=== PATIENT | female | born 1960 | race Caucasian/White ===

== ENCOUNTER 2016-05-26 | Inpatient (IN) | payer SELFPAY ==
[2016-05-26] VITALS (10 sets, daily range): BP systolic 123–150; BP diastolic 58–79; PULSE 70–120; RESP 16–22; TEMP 97.2–100; O2SAT 95–99
[~2016-05-26] VITALS: Ht 157.5 cm; Wt 79.0 kg
[~2016-05-26] MED LIST: MACR100C2 PO
[2016-05-26] MEDS ORDERED: SODIUM CHLOR 0.9% 1000 ML INJ 1,000 ML IV ONE ×2 (00:32)
[2016-05-26] MEDS ORDERED: PIPERACIL-TAZO 4.5 GM PREMIX 100 ML IV STA (00:32)
[2016-05-26] MEDS ORDERED: VANCOMYCIN INJ 1,400 MG in SODIUM CHLORID 0.9% 500 ML INJ 500 ML IV STA (00:32)
[2016-05-26] MEDS ORDERED: SODIUM CHLOR 0.9% 1000 ML INJ 100 ML IV ONE (00:32)
[2016-05-26] MEDS ORDERED: HYDROmorphone HCL PF 1 MG/ML VIAL IV ONE (00:45)
[2016-05-26] MEDS ORDERED: ACETAMINOPHEN 325 MG TAB PO ONE (00:45)
[2016-05-26] MEDS ORDERED: ONDANSETRON HCL 4 MG/2 ML VIAL IV ONE (00:45)
[2016-05-26 01:01] LABS: AUTOMATED NEUTROPHIL # 5.7 TH/MM3 (1.8-7.7); BASOPHIL % 0.2 % (0.0-2.0); EOSINOPHIL % 0.4 % (0.0-4.0); HEMATOCRIT 42.3 % (35.0-46.0); LYMPH % 8.9 % (9.0-44.0); LYMPHOCYTE # 0.6 TH/MM3 (1.0-4.8); MEAN CORPUSCULAR HEMOGLOBIN 34.4 PG (27.0-34.0); MEAN CORPUSCULAR HGB CONC 35.4 % (32.0-36.0); MONO % 7.3 % (0.0-8.0); NEUT % 83.2 % (16.0-70.0); PLATELET COUNT 66 TH/MM3 (150-450); RED BLOOD COUNT 4.36 MIL/MM3 (4.00-5.30); RED CELL DISTRIBUTION WIDTH 12.7 % (11.6-17.2); WHITE BLOOD COUNT 6.9 TH/MM3 (4.0-11.0)
[2016-05-26 01:04] LABS: HEMO FLAGS AUTO DIFF
[2016-05-26 01:10] LABS: ALT (GPT) 55 U/L (10-53); ANION GAP 10 MEQ/L (5-15); AST (GOT) 60 U/L (15-37); BLOOD UREA NITROGEN 13 MG/DL (7-18); CHLORIDE 100 MEQ/L (98-107); GLOMERULAR FILTRATION RATE 72 ML/MIN (>89); POTASSIUM 3.7 MEQ/L (3.5-5.1); SODIUM (NA) 133 MEQ/L (136-145)
[2016-05-26 01:12] LABS: ALKALINE PHOSPHATASE 94 U/L (45-117); TOTAL BILIRUBIN ADULT 0.9 MG/DL (0.2-1.0)
[2016-05-26] MEDS ORDERED: IOHEXOL 350 MG/ML 10 ML VIAL (for RAD DIAG) IV ONE (02:09)
--- NOTE | 2016-05-26 02:21 | RADRPT ---
EXAM DATE/TIME: 05/26/2016 01:55 [facility] COMPARISON: No previous studies available for comparison. INDICATIONS : Right sided abdominal pain. IV CONTRAST: 65 cc Omnipaque 350 (iohexol) IV ORAL CONTRAST: No oral contrast ingested. RADIATION DOSE: 9.96 CTDIvol (mGy) MEDICAL HISTORY : Renal calculi. Seizures. Multiple sclerosis. SURGICAL HISTORY : Tubal ligation. Tonsillectomy. section.Cholecystectomy. ENCOUNTER: Initial ACUITY: 1 day PAIN SCALE: 3/10 LOCATION: Right lower quadrant TECHNIQUE: Volumetric scanning of the abdomen and pelvis was performed. Using automated exposure control and ad justment of the mA and/or kV according to patient size, radiation dose was kept as low as reasonably achievable to obtain optimal diagnostic quality images. FINDINGS: Patient is status post cholecystectomy. There is mild hepatic steatosis. Spleen, pancreas, adrenal gl ands are normal in appearance. Tiny cyst left midpole kidney. There is a tiny cyst right upper pole k idney and moderate scarring of the right mid to upper pole kidney with parenchymal thinning present. On image 44 there is a nonobstructing right midpole calculus measures 6.3 mm. Atherosclerotic calcifi cations of the aorta and iliac vessels are seen. Urinary bladder is unremarkable. The uterus and ovar ies are unremarkable. Diverticulosis of the sigmoid colon and descending colon identified. A few dive rticuli of the transverse and descending colon are present. The appendix is normal. Atherosclerotic p laquing of the aorta and iliac vessels are seen. There is no adenopathy or aneurysm. Stomach unremark able. The osseous structures demonstrate degenerative changes of the spine. Bone island at T10 suspec jose cruz. Lung bases are clear. CONCLUSION: 1. Right renal scarring and nonobstructing right renal calculus. 2. No acute inflammatory changes. 3. Diverticulosis. Igor Puri MD on May 26, 2016 at 2:17 Board Certified Radiologist. This report was verified electronically.
--- NOTE | 2016-05-26 02:24 | RADRPT ---
EXAM DATE/TIME: 05/26/2016 01:54 [facility] COMPARISON: No previous studies available for comparison. INDICATIONS : Left side facial swelling and pain x2 days. RADIATION DOSE: 36.44 CTDIvol (mGy) MEDICAL HISTORY : Seizures. Renal calculi. Multiple sclerosis. SURGICAL HISTORY : Tonsillectomy. Cholecystectomy. section.Tubal ligation. ENCOUNTER: Initial ACUITY: 2 days PAIN SCORE: 7/10 LOCATION: Left facial TECHNIQUE: Volumetric scanning of the facial bones was performed. Using automated exposure control and adjustme nt of the mA and/or kV according to patient size, radiation dose was kept as low as reasonably achiev able to obtain optimal diagnostic quality images. FINDINGS: ORBITS: The orbital and infraorbital osseous structures are intact. The retroconal structures have a normal configuration. No radiopaque foreign bodies are seen. NASAL BONE: The nasal bone and maxillary spine are intact ZYGOMATIC ARCHES: Symmetric without evidence of fracture. SINUSES: The maxillary, ethmoid and frontal sinuses are intact. No air-fluid levels seen. NASAL CAVITY: The nasal septum is intact and midline. The lacrimal ducts are intact. SOFT TISSUES: There is marked subcutaneous edema of the left infraorbital and facial soft tissues without evidence for abscess. There is mild skin thickening. INTRACRANIAL: No intracranial air seen. CRIBIFORM PLATE: Grossly intact. CONCLUSION: 1. Extensive soft tissue swelling of the left base greatest in the infraorbital region characteristic of cellulitis. No evidence for abscess. Igor Puri MD on May 26, 2016 at 2:21 Board Certified Radiologist. This report was verified electronically.
[2016-05-26 02:28] LABS: BLOOD, URINE SMALL (NEG); GLUCOSE,URINE NEG (NEG); KETONE, URINE NEG (NEG); NITRITE,URINE NEG (NEG); SQUAMOUS EPITHELIAL CELL URINE <1 /hpf (0-5); URINE COLOR LIGHT-YELLOW (YELLW/STRAW)
[2016-05-26 02:41] LABS: COMMENT (UR) CATH-CULT NOT IND; CULTURE IF INDICATED CATH CULTURE NOT IND
--- NOTE | 2016-05-26 03:26 | PD ---
HPI Chief Complaint: Facial Pain or Swelling Time Seen by Provider: 00:26 Travel History International Travel<30 days: No Contact w/Intl Traveler<30days: No Traveled to known affect area: No History of Present Illness HPI 56-year-old female arrives to the ER with 1 day of face swelling. She also reports trouble body myalgias. The face swelling is painful constantly so. It' s worse with movement of the face and with palpation of the face. She reports a subjective fever. She reports a similar prior events resulting in incision and drainage was some extension of infection into the anterior neck. She's had no difficulty swallowing or breathing. 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 She states the pain has been there for about 1 day. PFSH Past Medical History Heart Rhythm Problems: No Cancer: No Cardiac Catheterization: No Cardiovascular Problems: No High Cholesterol: No Congestive Heart Failure: No Diabetes: No Diminished Hearing: No Endocrine: No Gastrointestinal Disorders: No Genitourinary: Yes Headaches: Yes Hypertension: No Immune Disorder: No Kidney Stones: Yes Musculoskeletal: Yes (MS) Neurologic: Yes Psychiatric: No Reproductive: No Respiratory: Yes Myocardial Infarction: No Seizures: Yes ?: Not Menopausal: Yes Tubal Ligation: Yes Past Surgical History Abdominal Surgery: Yes (RC, KIDNEY STONE REMOVAL) Section: Yes (X 2) Cholecystectomy: Yes Coronary Artery Bypass Graft: No Endocrine Surgery: Yes (TONSILLECTOMY) Gynecologic Surgery: Yes (2 ) Hysterectomy: No Tonsillectomy: Yes Other Surgery: Yes Social History Alcohol Use: Yes Tobacco Use: Yes (PPD) Substance Use: Yes (MJ occasionaly ) Allergies-Medications (Allergen,Severity, Reaction): Coded Allergies: Codeine (Verified Allergy, Severe, SWELLING HIVES, 05/26/16) Reported Meds & Prescriptions Reported Meds & Active Scripts Active No Active Prescriptions or Reported Medications Review of Systems Except as stated in HPI: all other systems reviewed are Neg General / Constitutional: Positive: Fever Skin: Positive Lesions Physical Exam Narrative GENERAL: 56-year-old female pleasant no acute distress SKIN: Warm and dry. HEAD: Atraumatic. Normocephalic. EYES: Pupils equal and round. No scleral icterus. No injection or drainage. No diplopia. ENT: No nasal bleeding or discharge. Left face markedly swollen erythematous tender and indurated. Range of motion of the eyes is conjugate. No entrapment. NECK: Trachea midline. No JVD. CARDIOVASCULAR: Regular rate and rhythm. No murmur appreciated. RESPIRATORY: No accessory muscle use. Clear to auscultation. Breath sounds equal bilaterally. GASTROINTESTINAL: Soft. Tenderness in the right lower quadrant. MUSCULOSKELETAL: No obvious deformities. No clubbing. No cyanosis. No edema. NEUROLOGICAL: Awake and alert. No obvious cranial nerve deficits. Motor grossly within normal limits. Normal speech. PSYCHIATRIC: Appropriate mood and affect; insight and judgment normal. Data Data Last Documented VS Vital Signs Date Time Temp Pulse Resp B/P Pulse Ox O2 Delivery O2 Flow Rate FiO2 05/26/16 03:15 85 16 127/79 95 Room Air 05/26/16 00:01 100.0 Orders Complete Blood Count With Diff (05/26/16 00:32) Comprehensive Metabolic Panel (05/26/16 00:32) Lactic Acid Sepsis Protocol (05/26/16 00:32) Urinalysis - C+S If Indicated (05/26/16 00:32) Blood Culture (05/26/16 00:32) Ecg Monitoring (05/26/16 00:32) Iv Access Insert/Monitor (05/26/16 00:32) Oximetry (05/26/16 00:32) Oxygen Administration (05/26/16 00:32) Acetaminophen (Tylenol) (05/26/16 00:45) Hydromorphone Pf Inj (Dilaudid Pf Inj) (05/26/16 00:45) Ondansetron Inj (Zofran Inj) (05/26/16 00:45) Piperacil-Tazo 4.5 Gm Premix (Zosyn 4.5 (05/26/16 00:32) Vancomycin Inj (Vancomycin Inj) (05/26/16 00:32) Sodium Chlor 0.9% 1000 Ml Inj (Ns 1000 M (05/26/16 00:32) Sodium Chlor 0.9% 1000 Ml Inj (Ns 1000 M (05/26/16 00:32) Sodium Chlor 0.9% 1000 Ml Inj (Ns 1000 M (05/26/16 00:32) Ct Abd/Pel W Iv Contrast(Rout) (05/26/16 01:47) Ct Facial Bones W Iv Contrast (05/26/16 01:33) Iohexol 350 Inj (Omnipaque 350 Inj) (05/26/16 02:09) Admit Order (Ed Use Only) (05/26/16 03:13) Labs Laboratory Tests Test 05/26/16 05/26/16 00:40 02:15 White Blood Count 6.9 TH/MM3 Red Blood Count 4.36 MIL/MM3 Hemoglobin 15.0 GM/DL Hematocrit 42.3 % Mean Corpuscular Volume 97.0 FL Mean Corpuscular Hemoglobin 34.4 PG Mean Corpuscular Hemoglobin 35.4 % Concent Red Cell Distribution Width 12.7 % Platelet Count 66 TH/MM3 Mean Platelet Volume 10.1 FL Neutrophils (%) (Auto) 83.2 % Lymphocytes (%) (Auto) 8.9 % Monocytes (%) (Auto) 7.3 % Eosinophils (%) (Auto) 0.4 % Basophils (%) (Auto) 0.2 % Neutrophils # (Auto) 5.7 TH/MM3 Lymphocytes # (Auto) 0.6 TH/MM3 Monocytes # (Auto) 0.5 TH/MM3 Eosinophils # (Auto) 0.0 TH/MM3 Basophils # (Auto) 0.0 TH/MM3 CBC Comment AUTO DIFF Differential Comment AUTO DIFF CONFIRMED Platelet Estimate LOW Platelet Morphology Comment NORMAL Sodium Level 133 MEQ/L Potassium Level 3.7 MEQ/L Chloride Level 100 MEQ/L Carbon Dioxide Level 23.0 MEQ/L Anion Gap 10 MEQ/L Blood Urea Nitrogen 13 MG/DL Creatinine 0.82 MG/DL Estimat Glomerular Filtration 72 ML/MIN Rate Random Glucose 171 MG/DL Lactic Acid Level 1.0 mmol/L Calcium Level 9.1 MG/DL Total Bilirubin 0.9 MG/DL Aspartate Amino Transf 60 U/L (AST/SGOT) Alanine Aminotransferase 55 U/L (ALT/SGPT) Alkaline Phosphatase 94 U/L Total Protein 7.7 GM/DL Albumin 3.5 GM/DL Urine Color LIGHT-YELLOW Urine Turbidity CLEAR Urine pH 6.0 Urine Specific [place] 1.010 Urine Protein NEG mg/dL Urine Glucose (UA) NEG mg/dL Urine Ketones NEG mg/dL Urine Occult Blood SMALL Urine Nitrite NEG Urine Bilirubin NEG Urine Urobilinogen LESS THAN 2.0 MG/DL Urine Leukocyte Esterase SMALL Urine RBC 1 /hpf Urine WBC 2 /hpf Urine Squamous Epithelial <1 /hpf Cells Microscopic Urinalysis Comment CATH-CULT NOT IND MDM Medical Decision Making Medical Screen Exam Complete: Yes Emergency Medical Condition: Yes Medical Record Reviewed: Yes Differential Diagnosis Sepsis, cellulitis, pneumonia, UTI, appendicitis Narrative Course CBC & BMP Diagram 05/26/16 00:40 AST 60 ALT 55 Lactic acid 1.[address] reveals cellulitis on the left side Abdomen pelvis CT reveals no appendicitis Vancomycin and Zosyn started. 3 L crystalloid started. Discussed with Dr. Chavez. Diagnosis Primary Impression: Facial cellulitis Admitting Information Admitting Physician Requests: Admit Scripts No Active Prescriptions or Reported Meds Pipe Garcia MD May 26, 2016 03:26
[2016-05-26] MEDS ORDERED: ONDANSETRON HCL 4 MG/2 ML VIAL IVP PRN (03:30)
[2016-05-26] MEDS: MULTIVITAMIN INJ 10 ML, FOLIC ACID INJ 1 MG in SODIUM CHLORID 0.9% 500 ML INJ 500 ML IV SCH ×2 (03:30→13:52)
[2016-05-26] MEDS ORDERED: Vancomycin Consult Pharmacy 1 EA OTHER SCH (03:30)
[2016-05-26] MEDS ORDERED: BISACODYL 10 MG SUPP PR PRN (03:30)
[2016-05-26] MEDS ORDERED: MORPHINE SULFATE 4 MG/ML INJ IV PRN (03:30)
--- NOTE | 2016-05-26 03:42 | HHI.HP ---
[facility] No Primary Care Physician Admission Diagnosis L Face Cellulitis Diagnoses: (1) Facial cellulitis Diagnosis: Principal (2) Alcohol abuse Diagnosis: Principal (3) Thrombocytopenia Diagnosis: Principal (4) Tobacco abuse Diagnosis: Principal Travel History International Travel<30 Days: No Contact w/Intl Traveler <30 Da: No Traveled to Known Affected Are: No History of Present Illness This is a 56-year-old female with a PMH of Alcohol Abuse, Tobacco Abuse and h/o IVDU w/ Heroin who presented to the ER w/ left-sided facial redness and swelling starting earlier today. Pt states she noticed a pimple above her left lip yesterday and "popped it". Today, woke up w/ left facial swelling and redness which has gotten progressively worse throughout the day, now involving her eye. Denies fever, chills or recent IVDU. On arrival, BP 134/79, HR 120, O2 sat 95% on RA, Temp 100.0. BP currently 127/79, HR 85. WBC 6.9. Platelets 66, previously 119 on 03/04/16. Chemistry essentially at baseline. Lactic Acid normal. UA with small LE. CT Maxillofacial with extensive soft tissue swelling of the left face characteristic of cellulitis, no abscess noted. S/p Blood Cultures, IV Vanc/Zosyn in ER. Review of Systems Except as stated in HPI: all other systems reviewed are Neg ROS: 14 point review of systems otherwise negative. Past Family Social History Past Medical History PMH: Alcohol Abuse, Tobacco Abuse and h/o IVDU w/ Heroin Past Surgical History PAST SURGICAL HISTORY: Cholecystectomy, , Tonsillectomy, Lithotripsy Allergies: Coded Allergies: Codeine (Verified Allergy, Severe, SWELLING HIVES, 05/26/16) Family History PAST FAMILY HISTORY: Reviewed. No h/o DM or CAD Social History PAST SOCIAL HISTORY: Positive for alcohol and tobacco. History of IVDU w/ Heroin, occasional Marijuana. Physical Exam Vital Signs Vital Signs Date Time Temp Pulse Resp B/P Pulse Ox O2 Delivery O2 Flow Rate FiO2 05/26/16 03:15 85 16 127/79 95 Room Air 05/26/16 00:01 100.0 120 22 134/79 95 Room Air Physical Exam PE: GENERAL: Middle-aged white female in no acute distress. HEENT: PERRLA, EOMI. No scleral icterus or conjunctival pallor. No lid lag or facial droop. Left lip scab. Left facial erythema/edema from left upper lip to periorbital region. No visual changes. CARDIOVASCULAR: Regular rate and rhythm. No obvious murmurs to auscultation. No chest tenderness to palpation. RESPIRATORY: No obvious rhonchi or wheezing. Clear to auscultation. Breath sounds equal bilaterally. GASTROINTESTINAL: Abdomen soft, non-tender, nondistended. BS normal. MUSCULOSKELETAL: Extremities without clubbing, cyanosis, or edema. No obvious deformities. NEUROLOGICAL: Awake, alert and oriented x4. No focal neurologic deficits. Moving both upper and lower extremities spontaneously. Laboratory Laboratory Tests Test 05/26/16 05/26/16 00:40 02:15 White Blood Count 6.9 Red Blood Count 4.36 Hemoglobin 15.0 Hematocrit 42.3 Mean Corpuscular Volume 97.0 Mean Corpuscular Hemoglobin 34.4 Mean Corpuscular Hemoglobin 35.4 Concent Red Cell Distribution Width 12.7 Platelet Count 66 Mean Platelet Volume 10.1 Neutrophils (%) (Auto) 83.2 Lymphocytes (%) (Auto) 8.9 Monocytes (%) (Auto) 7.3 Eosinophils (%) (Auto) 0.4 Basophils (%) (Auto) 0.2 Neutrophils # (Auto) 5.7 Lymphocytes # (Auto) 0.6 Monocytes # (Auto) 0.5 Eosinophils # (Auto) 0.0 Basophils # (Auto) 0.0 CBC Comment AUTO DIFF Sodium Level 133 Potassium Level 3.7 Chloride Level 100 Carbon Dioxide Level 23.0 Anion Gap 10 Blood Urea Nitrogen 13 Creatinine 0.82 Estimat Glomerular Filtration 72 Rate Random Glucose 171 Lactic Acid Level 1.0 Calcium Level 9.1 Total Bilirubin 0.9 Aspartate Amino Transf 60 (AST/SGOT) Alanine Aminotransferase 55 (ALT/SGPT) Alkaline Phosphatase 94 Total Protein 7.7 Albumin 3.5 Urine Color LIGHT-YELLOW Urine Turbidity CLEAR Urine pH 6.0 Urine Specific [place] 1.010 Urine Protein NEG Urine Glucose (UA) NEG Urine Ketones NEG Urine Occult Blood SMALL Urine Nitrite NEG Urine Bilirubin NEG Urine Urobilinogen LESS THAN 2.0 Urine Leukocyte Esterase SMALL Urine RBC 1 Urine WBC 2 Urine Squamous Epithelial <1 Cells Microscopic Urinalysis Comment CATH-CULT NOT IND Date/Time Procedure Status Source Growth 05/26/16 00:45 Aerobic Blood Culture Received Blood Peripheral Pending 05/26/16 00:45 Anaerobic Blood Culture Received Blood Peripheral Pending Result Diagram: 05/26/160 05/26/160 Assessment and Plan Problem List: (1) Facial cellulitis ICD Code: L03.211 Status: Acute (2) Alcohol abuse ICD Code: F10.10 Status: Acute (3) Thrombocytopenia ICD Code: D69.6 Status: Acute (4) Tobacco abuse ICD Code: Z72.0 Status: Acute Assessment and Plan A/P: 1. Left Facial Cellulitis: acute left facial erythema/edema starting today after popping pimple above left lip yesterday. CT Maxillofacial w/ extensive left sided facial cellulitis, no abscess noted, images reviewed by me. Afebrile , no leukocytosis. S/p Blood Cultures, Vanc/Zosyn in ER. Follow up cultures, continue IV Abx. 2. Alcohol Abuse: Seizure Precautions, Ativan prn, MVT/Thiamine/Folate replacement. 3. Thrombocytopenia: Chronic. Platelets 66, previously 119 on 03/04/16. Secondary to chronic alcohol abuse. No active bleeding. Will monitor, repeat labs in am. 4. Tobacco Abuse: Counselled. Ativan/NicoDerm prn as needed. 5. DVT Prophylaxis: SCD/Teds. 6. Social work for d/c planning as needed. 7. Case discussed w/ ER physician at length. Physician Certification 2 Midnight Certification Type: Admission for Inpatient Services Order for Inpatient Services The services are ordered in accordance with Medicare regulations or non- Medicare payer requirements, as applicable. In the case of services not specified as inpatient-only, they are appropriately provided as inpatient services in accordance with the 2-midnight benchmark. Estimated LOS (days): 2 days is the estimated time the patient will need to remain in the hospital, assuming treatment plan goals are met and no additional complications. Post-Hospital Plan: Not yet determined Lucrecia Chavez MD May 26, 2016 03:42
[2016-05-26 03:47] LABS: PLATELET ESTIMATE SMEAR LOW (NORMAL); PLATELET MORPHOLOGY NORMAL (NORMAL)
[2016-05-26 03:48] LABS: SCAN/DIFF AUTO DIFF CONFIRMED
[2016-05-26] MEDS: THIAMINE INJ 100 MG in SODIUM CHLORIDE 0.9% INJ 100 ML IV SCH (04:32)
[2016-05-26] MEDS: ACETAMINOPHEN 325 MG TAB PO PRN ×3 (05:06→07:59)
[2016-05-26] MEDS ORDERED: AMPICILLIN-SULBACTAM INJ 3 GM in SODIUM CHLORIDE 0.9% INJ 100 ML IV SCH (06:00)
[2016-05-26] MEDS ORDERED: ACETAMINOPHEN 325 MG TAB PO PRN (08:45)
[2016-05-26] MEDS ORDERED: NALOXONE HCL 0.4 MG/ML AMP IV PRN (08:45)
[2016-05-26] MEDS ORDERED: HYDROmorphone HCL PF 1 MG/ML VIAL IV PUSH ONE (08:45)
[2016-05-26] MEDS ORDERED: ACETAMINOPHEN/HYDROcodone 325 MG/5 MG TAB PO PRN (08:45)
[2016-05-26] MEDS: ACETAMINOPHEN/HYDROcodone 325 MG/10 MG TAB PO PRN ×2 (09:02→14:01)
--- NOTE | 2016-05-26 09:06 | HHI.PR ---
Subjective Remarks Follow up for left facial cellulitis. The patient has continued significant warmth, erythema, edema throughout the left face. Having fevers overnight, Tmax 100.0, current Temp 99.9. She is requesting something stronger than Tylenol for pain. She has had small amount of yellow drainage from the left eye. Denies changes in vision but has difficulty opening the eye secondary to the swelling. She denies any dental problems, has been edentulous for years. She had a pimple around her left side of the lips 2 days ago which she popped but otherwise denies any recent facial wounds. Denies any recent IV drug use, did use some IV drugs back in her 20s. Objective Vitals Vital Signs Date Time Temp Pulse Resp B/P Pulse Ox O2 Delivery O2 Flow Rate FiO2 05/26/16 07:13 99.9 94 19 138/62 98 05/26/16 06:06 98.8 97 21 150/69 99 05/26/16 05:01 85 20 131/77 96 Room Air 05/26/16 03:15 85 16 127/79 95 Room Air 05/26/16 00:01 100.0 120 22 134/79 95 Room Air Result Diagram: 05/26/16 0040 05/26/16 0040 Imaging Last Impressions Abdomen/Pelvis CT 05/26/16 0147 Signed Impressions: Service Date/Time: Thursday, May 26, 2016 01:55 - CONCLUSION: 1. Right renal scarring and nonobstructing right renal calculus. 2. No acute inflammatory changes. 3. Diverticulosis. Igor Puri MD Maxillofacial CT 05/26/16 0133 Signed Impressions: Service Date/Time: Thursday, May 26, 2016 01:54 - CONCLUSION: 1. Extensive soft tissue swelling of the left base greatest in the infraorbital region characteristic of cellulitis. No evidence for abscess. Igor Puri MD Objective Remarks GENERAL: Well-nourished, well-developed middle aged female patient in [facility]. SKIN: Warm and dry. Significant diffuse left facial warmth/erythema/edema throughout left side of lips, chin, cheek, periorbital and temporal region. HEENT: Normocephalic. Atraumatic. Pupils equal and round. No scleral icterus. No injection or drainage. Mucous membranes pink and moist. NECK: Supple. Trachea midline. CARDIOVASCULAR: Regular rate and rhythm. S1, S2 noted. No murmur appreciated. RESPIRATORY: No accessory muscle use. Clear to auscultation. Breath sounds equal bilaterally. GASTROINTESTINAL: Abdomen soft, non-tender, nondistended. Normoactive bowel sounds x4. MUSCULOSKELETAL: No obvious deformities. Extremities without clubbing, cyanosis , or edema. NEUROLOGICAL: Awake and alert. No obvious cranial nerve deficits. Motor grossly within normal limits. Normal speech. PSYCHIATRIC: Appropriate mood and affect; insight and judgment normal. Medications and IVs Current Medications Medications (Trade) Dose Ordered Sig/Darin Route Start Time Stop Time Status Last Admin Ampicillin Sodium/ Sulbactam Sodium 3 gm/Sodium Chloride 100 ml @ 200 mls/hr Q6H IV 05/26/16 06:00 05/26/16 08:00 Pharmacy Profile Note 0 ml @ 0 mls/hr UNSCH OTHER 05/26/16 03:30 Multivitamins 10 ml/Folic Acid 1 mg/Sodium Chloride 510.2 ml @ 125 mls/hr Q24H IV 05/26/16 03:30 05/31/16 03:29 (Thiamine Inj/NS Inj) 101 ml @ 100 mls/hr Q24H IV 05/26/16 03:30 05/29/16 03:29 05/26/16 04:32 (Vitamin B1) 100 mg DAILY PO 05/29/16 09:00 (Ativan Inj) 1 mg Q2H PRN IV PUSH 05/26/16 03:30 (NS Flush) 2 ml UNSCH PRN FLUSH 05/26/16 03:30 (NS Flush) 2 ml BID FLUSH 05/26/16 09:00 (Zofran Inj) 4 mg Q6H PRN IVP 05/26/16 03:30 (Dulcolax Supp) 10 mg DAILY PRN NV 05/26/16 03:30 (Tylenol) 650 mg Q6H PRN PO 05/26/16 08:45 (Dilaudid Pf Inj) 0.5 mg Q3H PRN IV 05/26/16 08:45 (Narcan Inj) 0.4 mg UNSCH PRN IV 05/26/16 08:45 ([place] 5-325 Mg) 1 tab Q4H PRN PO 05/26/16 08:45 ([place] 10-325 Mg) 1 tab Q4H PRN PO 05/26/16 08:45 A/P Problem List: (1) Facial cellulitis ICD Code: L03.211 Status: Acute (2) Alcohol abuse ICD Code: F10.10 Status: Acute (3) Thrombocytopenia ICD Code: D69.6 Status: Acute (4) Tobacco abuse ICD Code: Z72.0 Status: Acute Assessment and Plan 56-year-old female with a PMH of Alcohol Abuse, Tobacco Abuse and h/o IVDU w/ Heroin who presented to the ER with a 1 day history of significant left-sided facial redness and swelling. Sepsis with Left Facial Cellulitis: acute left facial erythema/edema starting after popping pimple above left lip 05/24. Febrile, tachycardic HR 120, but no leukocytosis. -CT Maxillofacial w/ extensive left sided facial cellulitis, no abscess noted , images reviewed by me. -Blood Cultures collected. -S/p IV Vanc/Zosyn in ER, continue IV Vanco and IV Zosyn. -Pain control with [place] prn and IV Dilaudid prn breakthrough pain. -Schedule IV Toradol 15mg q6h x5days -Consult maxillofacial surgery Hyperglycemia: Glucose 171, no hx of diabetes, possibly related to infection. Check HgbA1c. Alcohol Abuse: Seizure Precautions, Ativan prn, MVT/Thiamine/Folate replacement. Thrombocytopenia: Chronic. Platelets 66, previously 119 on 03/04/16. Secondary to chronic alcohol abuse. No active bleeding. Will monitor CBC. Tobacco Abuse: Counselled. Ativan/NicoDerm prn as needed. DVT Prophylaxis: SCD/Teds. Avoid chemoprophylaxis with thrombocytopenia. Discussed with Dr. Cr and RN. Attending Statement The exam, history, and the medical decision-making described in the above note were completed with the assistance of the mid-level provider. I reviewed and agree with the findings presented. I attest that I had a [id number] encounter with the patient on the same day, and personally performed and documented my assessment and findings in the medical record. Rena Price PA-C May 26, 2016 09:06 Chris Cr MD May 27, 2016 02:46
[2016-05-26] MEDS: SODIUM CHLORIDE 0.9% FLUSH 5 ML FLUSH FLUSH SCH ×2 (09:09→21:59)
[2016-05-26] MEDS: KETOROLAC TROMETHAMINE 30 MG/ML (IVP) VIAL IV PUSH SCH ×3 (12:28→23:43)
[2016-05-26] MEDS: HYDROmorphone HCL PF 1 MG/ML VIAL IV PRN ×3 (12:29→20:14)
[2016-05-26] MEDS: SODIUM CHLORIDE 0.9% FLUSH 5 ML FLUSH FLUSH PRN (13:54)
[2016-05-26] MEDS: PIPERACIL-TAZO 4.5 GM PREMIX 100 ML IV SCH ×2 (16:14→21:59)
[2016-05-27] VITALS (7 sets, daily range): BP systolic 117–173; BP diastolic 62–91; PULSE 69–86; RESP 18–20; TEMP 97.9–98.7; O2SAT 95–97
[2016-05-27] MEDS: ACETAMINOPHEN/HYDROcodone 325 MG/10 MG TAB PO PRN ×4 (02:38→22:12)
[2016-05-27] MEDS: PIPERACIL-TAZO 4.5 GM PREMIX 100 ML IV SCH ×4 (02:38→22:11)
[2016-05-27] MEDS: HYDROmorphone HCL PF 1 MG/ML VIAL IV PRN ×4 (03:30→18:19)
[2016-05-27] MEDS: THIAMINE INJ 100 MG in SODIUM CHLORIDE 0.9% INJ 100 ML IV SCH (04:43)
[2016-05-27] MEDS: VANCOMYCIN INJ 1,250 MG in SODIUM CHLOR 0.9% 250 ML INJ 250 ML IV SCH (05:22)
[2016-05-27 06:01] LABS: AUTOMATED NEUTROPHIL # 4.7 TH/MM3 (1.8-7.7); BASOPHIL % 0.6 % (0.0-2.0); EOSINOPHIL # 0.2 TH/MM3 (0-0.4); HEMATOCRIT 34.5 % (35.0-46.0); LYMPH % 12.7 % (9.0-44.0); LYMPHOCYTE # 0.8 TH/MM3 (1.0-4.8); MEAN CELL VOLUME 97.3 FL (80.0-100.0); MEAN CORPUSCULAR HEMOGLOBIN 34.6 PG (27.0-34.0); MEAN CORPUSCULAR HGB CONC 35.6 % (32.0-36.0); MONO % 8.3 % (0.0-8.0); NEUT % 75.4 % (16.0-70.0); PLATELET COUNT 74 TH/MM3 (150-450); RED BLOOD COUNT 3.54 MIL/MM3 (4.00-5.30); RED CELL DISTRIBUTION WIDTH 13.1 % (11.6-17.2); WHITE BLOOD COUNT 6.2 TH/MM3 (4.0-11.0)
[2016-05-27] MEDS: KETOROLAC TROMETHAMINE 30 MG/ML (IVP) VIAL IV PUSH SCH ×3 (06:09→17:22)
[2016-05-27 07:01] LABS: HEMO FLAGS AUTO DIFF
[2016-05-27 07:02] LABS: PLATELET ESTIMATE SMEAR LOW (NORMAL); PLATELET MORPHOLOGY GIANT (NORMAL); SCAN/DIFF AUTO DIFF CONFIRMED
[2016-05-27 08:31] LABS: ALKALINE PHOSPHATASE 66 U/L (45-117); ALT (GPT) 51 U/L (10-53); ANION GAP 7 MEQ/L (5-15); AST (GOT) 44 U/L (15-37); BICARBONATE 23.8 MEQ/L (21.0-32.0); BLOOD UREA NITROGEN 13 MG/DL (7-18); CHLORIDE 106 MEQ/L (98-107); GLOMERULAR FILTRATION RATE 79 ML/MIN (>89); POTASSIUM 3.5 MEQ/L (3.5-5.1); SODIUM (NA) 137 MEQ/L (136-145); TOTAL BILIRUBIN ADULT 0.8 MG/DL (0.2-1.0)
--- NOTE | 2016-05-27 09:04 | HHI.PR ---
Subjective Remarks Follow-up for facial cellulitis. Patient reports swelling around the left eye has significantly improved, no vision problems. She still has some swelling on her left cheek, extending down into her neck. She denies any problems breathing or swallowing difficulties. Tolerating diet. She states she was hot and sweaty last night, denies any specific fever or chills. She declines any steroids for the swelling, because they've caused her to have very high blood sugar in the past. She states that she has a few drinks on the weekends, denies any daily alcohol use. Denies any history of liver problems. Objective Vitals Vital Signs Date Time Temp Pulse Resp B/P Pulse Ox O2 Delivery O2 Flow Rate FiO2 05/27/16 07:36 97.9 71 18 151/84 96 05/27/16 04:40 98.6 86 18 117/62 95 05/26/16 23:34 98.5 78 18 132/70 95 05/26/16 20:00 70 05/26/16 19:40 97.2 76 18 123/58 97 05/26/16 16:32 98.1 83 18 127/62 99 05/26/16 12:28 98.0 86 18 127/64 96 I/O 05/26/16 05/26/16 05/26/16 05/27/16 05/27/16 05/27/16 07:00 15:00 23:00 07:00 15:00 23:00 Intake Total 550 ml Balance 550 ml Intake IV Total 550 ml # Bowel Movements 1 Result Diagram: 05/27/16 0504 05/26/16 0040 Imaging Last Impressions Abdomen/Pelvis CT 05/26/16 0147 Signed Impressions: Service Date/Time: Thursday, May 26, 2016 01:55 - CONCLUSION: 1. Right renal scarring and nonobstructing right renal calculus. 2. No acute inflammatory changes. 3. Diverticulosis. Igor Puri MD Maxillofacial CT 05/26/16 0133 Signed Impressions: Service Date/Time: Thursday, May 26, 2016 01:54 - CONCLUSION: 1. Extensive soft tissue swelling of the left base greatest in the infraorbital region characteristic of cellulitis. No evidence for abscess. Igor Puri MD Objective Remarks GENERAL: Well-developed well-nourished. In no acute distress. SKIN: Warm and dry. Left cheek with erythema, warmth, and induration. HEENT: Normocephalic. Pupils equal and round. Mucous membranes pink and moist. Slightly swollen and tender left submandibular lymph node. Airway patent. Slight left periorbital swelling. CARDIOVASCULAR: Regular rate and rhythm. No murmur appreciated. RESPIRATORY: No accessory muscle use. Clear to auscultation. Breath sounds equal bilaterally. GASTROINTESTINAL: Abdomen soft, non-tender, nondistended. Bowel sounds x4. MUSCULOSKELETAL: No obvious deformities. No clubbing or cyanosis. No edema. NEUROLOGICAL: Awake and alert. No focal neurological deficits. Moves upper and lower extremities spontaneously. Normal speech. PSYCHIATRIC: Appropriate mood and affect; insight and judgment normal. A/P Problem List: (1) Facial cellulitis ICD Code: L03.211 Status: Acute (2) Alcohol abuse ICD Code: F10.10 Status: Acute (3) Thrombocytopenia ICD Code: D69.6 Status: Acute (4) Tobacco abuse ICD Code: Z72.0 Status: Acute Assessment and Plan 56-year-old female with a PMH of Alcohol Abuse, Tobacco Abuse and h/o IVDU w/ Heroin who presented to the ER with a 1 day history of significant left-sided facial redness and swelling. Sepsis with Left Facial Cellulitis: acute left facial erythema/edema starting after popping pimple above left lip 05/24. Febrile, tachycardic HR 120, but no leukocytosis. -CT Maxillofacial w/ extensive left sided facial cellulitis, no specific abscess noted. -Blood Cultures collected. -Continue IV Vanco and IV Zosyn. -Pain control with [place] prn and IV Dilaudid prn breakthrough pain. -Scheduled IV Toradol 15mg q6h x5days with prophylactic PPI -Consulted maxillofacial surgery -Cold Compress Hyperglycemia: Glucose 171, no hx of diabetes, possibly reactive from infection. HgbA1c pending. Alcohol Abuse: By history, patient denies. No signs of withdrawal. Ativan prn, MVT/Thiamine/Folate replacement. Thrombocytopenia: Chronic upon review previous labs. Stable overnight. Chronic worsening, likely secondary to acute infection as above. No active bleeding. Will monitor CBC. Elevated LFTs: AST and ALT minimally elevated. Follow-up LFTs pending. Tobacco Abuse: Counselled. NicoDerm if needed. DVT Prophylaxis: SCD/Teds. Avoid chemoprophylaxis with thrombocytopenia. Discharge Planning Possible DC planning in 12 days on oral antibiotics if patient continues to improve. Attending Statement The exam, history, and the medical decision-making described in the above note were completed with the assistance of the mid-level provider. I reviewed and agree with the findings presented. I attest that I had a [id number] encounter with the patient on the same day, and personally performed and documented my assessment and findings in the medical record. no pain with EOM. patient reported that this began with a pimple on her left upper lip. only small scab at area of previous pimple. Continue antibiotics. expect abscess to form in the next few days. Consult maxillofacial surgery. Dilip Ward May 27, 2016 09:04 Chris Cr MD Jun 02, 2016 07:10
[2016-05-27] MEDS: PANTOPRAZOLE SOD 20 MG DELAYED RELEASE TAB PO SCH (12:06)
[2016-05-27] MEDS: SODIUM CHLORIDE 0.9% FLUSH 5 ML FLUSH FLUSH SCH ×2 (12:07→22:11)
--- NOTE | 2016-05-27 13:19 | MB ---
cc: RADU LAURA DMD DATE OF CONSULTATION: 05/27/2016 REASON FOR CONSULTATION Left facial cellulitis. I have seen and examined this patient this evening, her daughter and nurse are at bedside. HISTORY OF PRESENT ILLNESS This is a 56-year-old female who last Friday evening popped a pimple on the left upper lip region. And then she reported that Friday began to increase more and then by Friday it got really swollen up and eye was closed shut. She is alert, awake and oriented x3, in no acute distress. The eye is wide open today. She reports that she is feeling much better status post starting the antibiotics. Denies any visual problems. Denies any fever, chills, nausea or any vomiting. PAST MEDICAL HISTORY IV drug abuser with heroin. PAST SURGICAL HISTORY 1. Cholecystectomy. 2. C-sections. 3. Tonsillectomy. ALLERGIES CODEINE. SOCIAL HISTORY History of alcohol and tobacco. History of IV drug abuse with heroin. She reports taking marijuana sometimes. EXAMINATION She has got a swelling on the left side of the face. It is tender to palpation. Mild area of erythema that is noted. No palpable collection that is noted. Eye is wide open. There is a pimple on the left upper lip. There is left-sided facial edema that is mild, greater than on the right side. Nasal passageways are open. VITAL SIGNS: Temperature is 98.7, pulse 70, respiration 19, blood pressure 145/88 with oxygen saturation of 96%. LABORATORY DATA Today is 6.2 white count with an H&H of 12.3 and 34.5 with platelets of 74. RADIOGRAPHY CT scan of the facial bones shows edema on the left side of the face, more cellulitic in nature, extending from region of the lip to the infraorbital region. I do not see any drainable abscess collection there. IMPRESSION AND PLAN This is a 56-year female status post popping a pimple several days ago on the left side of her upper lip, now presents with a swelling on the left side of the face, cellulitic in nature. No drainable collection is noted radiographically or clinically. The patient does report that she has got a history of MRSA from her legs. She has another pimple that just popped underneath her left armpit. I informed the patient not to pop pimples. High risk consistent with most likely a MRSA infection. We will advise the consult of infectious diseases for management. No surgical intervention needed at this time. I advised warm compress to the left side of the face, 20 minutes on, 20 minutes off. Radu Laura DMD RECREATION FACILITY ATTENDANT/TLL /12:54 PM /1:05 PM ARSEN
[2016-05-27 17:50] LABS: HEMOGLOBIN A1a 1.1 %; HEMOGLOBIN A1b 1.4 %; HEMOGLOBIN Ao 85.6 %; HEMOGLOBIN LA1C 1.8 %; HEMOGLOBIN P3 3.8 %
[2016-05-28] VITALS (7 sets, daily range): BP systolic 121–161; BP diastolic 58–89; PULSE 63–73; RESP 16–20; TEMP 96.3–98; O2SAT 95–99
[2016-05-28] MEDS: KETOROLAC TROMETHAMINE 30 MG/ML (IVP) VIAL IV PUSH SCH ×5 (00:01→23:29)
[2016-05-28] MEDS: LORazepam 2 MG/ML VIAL IV PUSH PRN ×2 (00:01→21:47)
[2016-05-28] MEDS: ACETAMINOPHEN/HYDROcodone 325 MG/10 MG TAB PO PRN ×5 (02:45→22:37)
[2016-05-28] MEDS: PIPERACIL-TAZO 4.5 GM PREMIX 100 ML IV SCH ×2 (02:45→08:30)
[2016-05-28] MEDS: SODIUM CHLORIDE 0.9% FLUSH 5 ML FLUSH FLUSH PRN (03:47)
[2016-05-28] MEDS: THIAMINE INJ 100 MG in SODIUM CHLORIDE 0.9% INJ 100 ML IV SCH (03:48)
[2016-05-28] MEDS: MULTIVITAMIN INJ 10 ML, FOLIC ACID INJ 1 MG in SODIUM CHLORID 0.9% 500 ML INJ 500 ML IV SCH (03:48)
[2016-05-28] MEDS: HYDROmorphone HCL PF 1 MG/ML VIAL IV PRN ×5 (05:26→23:28)
[2016-05-28] MEDS ORDERED: DEXTROSE 50% IN WATER 50 ML VIAL(D50) IV PUSH PRN (08:15)
[2016-05-28] MEDS ORDERED: GLUCAGON 1 MG/ML VIAL OTHER PRN (08:15)
--- NOTE | 2016-05-28 08:17 | HHI.PR ---
Subjective Remarks Follow-up for facial cellulitis. Family at bedside. Patient was increased swelling of the left cheek overnight. Swelling around the left eye continues to improve. The patient continues to tolerate all oral intake. No problems breathing. She denies any fevers or chills. Objective Vitals Vital Signs Date Time Temp Pulse Resp B/P Pulse Ox O2 Delivery O2 Flow Rate FiO2 05/28/16 07:37 98.0 73 20 148/77 97 05/28/16 02:58 97.4 67 18 121/58 95 05/27/16 23:06 98.4 79 18 142/86 97 05/27/16 21:28 72 05/27/16 19:53 98.1 69 18 173/79 97 05/27/16 15:45 98.1 73 20 136/91 97 05/27/16 11:25 98.7 75 19 145/88 96 Result Diagram: 05/27/16 0504 05/28/16 0650 Imaging Last Impressions Abdomen/Pelvis CT 05/26/16 0147 Signed Impressions: Service Date/Time: Thursday, May 26, 2016 01:55 - CONCLUSION: 1. Right renal scarring and nonobstructing right renal calculus. 2. No acute inflammatory changes. 3. Diverticulosis. Igor Puri MD Maxillofacial CT 05/26/16 0133 Signed Impressions: Service Date/Time: Thursday, May 26, 2016 01:54 - CONCLUSION: 1. Extensive soft tissue swelling of the left base greatest in the infraorbital region characteristic of cellulitis. No evidence for abscess. Igor Puri MD Objective Remarks GENERAL: Well-developed well-nourished. In no acute distress. SKIN: Warm and dry. Left cheek with erythema, warmth, and induration. HEENT: Normocephalic. Pupils equal and round. Mucous membranes pink and moist. Slightly swollen and tender left submandibular lymph node. Airway patent. Slight left periorbital swelling. CARDIOVASCULAR: Regular rate and rhythm. No murmur appreciated. RESPIRATORY: No accessory muscle use. Clear to auscultation. Breath sounds equal bilaterally. GASTROINTESTINAL: Abdomen soft, non-tender, nondistended. Bowel sounds x4. MUSCULOSKELETAL: No obvious deformities. No clubbing or cyanosis. No edema. NEUROLOGICAL: Awake and alert. No focal neurological deficits. Moves upper and lower extremities spontaneously. Normal speech. PSYCHIATRIC: Appropriate mood and affect; insight and judgment normal. A/P Problem List: (1) Facial cellulitis ICD Code: L03.211 Status: Acute (2) Alcohol abuse ICD Code: F10.10 Status: Acute (3) Thrombocytopenia ICD Code: D69.6 Status: Acute (4) Tobacco abuse ICD Code: Z72.0 Status: Acute Assessment and Plan 56-year-old female with a PMH of Alcohol Abuse, Tobacco Abuse and remote h/o IVDU w/ Heroin who presented to the ER with a 1 day history of significant left- sided facial redness and swelling. Sepsis with Left Facial Cellulitis: acute left facial erythema/edema starting after popping pimple above left lip 05/24. Febrile, tachycardic HR 120, but no leukocytosis. -CT Maxillofacial w/ extensive left sided facial cellulitis, no specific abscess noted. -Blood Cultures with NGTD -Continue IV Vanco and IV Zosyn. -Pain control with [place] prn and IV Dilaudid prn breakthrough pain. -Scheduled IV Toradol 15mg q6h x5days with prophylactic PPI -Consulted maxillofacial surgery, no drainable area for intervention, recommended ID consult -Consulted ID -Start IV Decadron 4 doses for swelling Borderline/pre diabetes: Fasting glucose 108. Check hemoglobin A1c, 5.8. Will cover with sliding scale insulin and monitor Accu-Cheks while on steroids as above. Alcohol Abuse: By history, patient denies. No signs of withdrawal. Ativan prn, MVT/Thiamine/Folate replacement. Thrombocytopenia: Chronic upon review previous labs. Stable. No active bleeding. Will monitor CBC. Elevated LFTs: AST and ALT minimally elevated at admission, improved on repeat labs. Tobacco Abuse: Counselled. NicoDerm if needed. DVT Prophylaxis: SCD/Teds. Avoid chemoprophylaxis with thrombocytopenia. Discharge Planning Possible DC planning in 12 days on oral antibiotics depending on clinical improvement. Attending Statement The exam, history, and the medical decision-making described in the above note were completed with the assistance of the mid-level provider. I reviewed and agree with the findings presented. I attest that I had a [id number] encounter with the patient on the same day, and personally performed and documented my assessment and findings in the medical record. Dilip Ward May 28, 2016 08:17 Chris Cr MD Jun 03, 2016 00:28
[2016-05-28] MEDS: PANTOPRAZOLE SOD 20 MG DELAYED RELEASE TAB PO SCH (08:30)
[2016-05-28] MEDS ORDERED: DEXAMETHASONE SOD PHOS 4 MG/ML VIAL IV PUSH SCH (09:00)
[2016-05-28] MEDS: SODIUM CHLORIDE 0.9% FLUSH 5 ML FLUSH FLUSH SCH ×2 (09:20→20:08)
[2016-05-28] MEDS: VANCOMYCIN INJ 1,250 MG in SODIUM CHLOR 0.9% 250 ML INJ 250 ML IV SCH (09:26)
[2016-05-28] MEDS: INSULIN ASPART SUPPLEMENTAL SCALE SQ SCH ×3 (12:44→20:08)
--- NOTE | 2016-05-28 13:09 | PD.ID.CON ---
History of Present Illness Service ID Consult Requested By Reason for Consult Evaluation and Mment of Sepsis, Left facial cellulitis. Primary Care Physician No Primary Care Physician Diagnoses: History of Present Illness is a 56-year-old female with past medical history significant for alcohol abuse, tobacco abuse as well as IV drug abuse with heroin. With this background patient presented to the emergency room at [facility] with left-sided redness and swelling encroaching upon her left eye. Patient reports that she plucks her upper lip hair and she noticed that she has several boils in that region. She picked on one of the boils and popped it. The next day when she woke up she noticed that her entire left side of face was swollen and erythematous. Discussed progressively worse throughout the day. Patient denies any fever or chills or night sweats. Denies ongoing IV drug abuse. Upon arrival in the ED at [facility] her BP 134/79, HR 120, O2 sat 95% on RA , Temp 100.0. BP currently 127/79, HR 85. WBC 6.9. Platelets 66, previously 119 on 03/04/16. Chemistry essentially at baseline. Lactic Acid normal. CT Maxillofacial with extensive soft tissue swelling of the left face characteristic of cellulitis, no abscess noted. S/p Blood Cultures, IV Vanc/ Zosyn in ER. Patient was evaluated by Dr. Laura from surgery and patient reports no plan for surgery at the present time. Infectious disease is consulted for evaluation and management of sepsis as well as left-sided facial cellulitis. Review of Systems ROS Limitations: Poor Historian Constitutional: DENIES: Diaphoretic episodes, Fatigue, Fever, Weight gain, Weight loss, Chills, Dizziness, Change in appetite, Night Sweats Endocrine: DENIES: Abnorml menstrual pattern, Heat/cold intolerance, Polydipsia , Polyuria, Polyphagia Eyes: DENIES: Blurred vision, Diplopia, Eye inflammation, Eye pain, Vision loss , Photosensitivity, Double Vision Ears, nose, mouth, throat: DENIES: Tinnitus, Hearing loss, Vertigo, Nasal discharge, Oral lesions, Throat pain, Hoarseness, Ear Pain, Running Nose, Epistaxis, Sinus Pain, Toothache, Odynophagia Respiratory: DENIES: Apneas, Cough, Snoring, Wheezing, Hemoptysis, Sputum production, Shortness of breath Cardiovascular: DENIES: Chest pain, Palpitations, Syncope, Dyspnea on Exertion , PND, Lower Extremity Edema, Orthopnea, Claudication Gastrointestinal: DENIES: Abdominal pain, Black stools, Bloody stools, Constipation, Diarrhea, Nausea, Vomiting, Difficulty Swallowing, Anorexia Genitourinary: DENIES: Abnormal vaginal bleeding, Dysmenorrhea, Dyspareunia, Sexual dysfunction, Urinary frequency, Urinary incontinence, Urgency, Hematuria , Dysuria, Nocturia, Vaginal discharge Musculoskeletal: DENIES: Joint pain, Muscle aches, Stiffness, Joint Swelling, Back pain, Neck pain Integumentary: DENIES: Abnormal pigmentation, Pruritus, Rash, Nail changes, Breast masses, Breast skin changes, Nipple discharge Hematologic/lymphatic: DENIES: Bruising, Lymphadenopathy Immunologic/allergic: DENIES: Eczema, Urticaria Neurologic: DENIES: Abnormal gait, Headache, Localized weakness, Paresthesias, Seizures, Speech Problems, Tremor, Poor Balance Psychiatric: DENIES: Anxiety, Confusion, Mood changes, Depression, Hallucinations, Agitation, Suicidal Ideation, Homicidal Ideation, Delusions Except as stated in HPI: all other systems reviewed are Neg Past Family Social History Allergies: Coded Allergies: Codeine (Verified Allergy, Severe, SWELLING HIVES, 05/26/16) Past Medical History Alcohol Abuse, Tobacco Abuse and h/o IVDU w/ Heroin. Past Surgical History Cholecystectomy, , Tonsillectomy, Lithotripsy. Reported Medications Reported Meds & Active Scripts Active No Active Prescriptions or Reported Medications Active Ordered Medications Current Medications Medications (Trade) Dose Ordered Sig/Darin Route Start Time Stop Time Status Last Admin Pharmacy Profile Note 0 ml @ 0 mls/hr UNSCH OTHER 05/26/16 03:30 Multivitamins 10 ml/Folic Acid 1 mg/Sodium Chloride 510.2 ml @ 125 mls/hr Q24H IV 05/26/16 03:30 05/31/16 03:29 05/28/16 03:48 (Thiamine Inj/NS Inj) 101 ml @ 100 mls/hr Q24H IV 05/26/16 03:30 05/29/16 03:29 05/28/16 03:48 (Vitamin B1) 100 mg DAILY PO 05/29/16 09:00 (Ativan Inj) 1 mg Q2H PRN IV PUSH 05/26/16 03:30 05/28/16 00:01 (NS Flush) 2 ml UNSCH PRN FLUSH 05/26/16 03:30 05/28/16 03:47 (NS Flush) 2 ml BID FLUSH 05/26/16 09:00 05/28/16 09:20 (Zofran Inj) 4 mg Q6H PRN IVP 05/26/16 03:30 (Dulcolax Supp) 10 mg DAILY PRN [place] 05/26/16 03:30 (Tylenol) 650 mg Q6H PRN PO 05/26/16 08:45 (Dilaudid Pf Inj) 0.5 mg Q3H PRN IV 05/26/16 08:45 05/28/16 09:50 (Narcan Inj) 0.4 mg UNSCH PRN IV 05/26/16 08:45 ([place] 5-325 Mg) 1 tab Q4H PRN PO 05/26/16 08:45 05/26/16 17:59 ([place] 10-325 Mg) 1 tab Q4H PRN PO 05/26/16 08:45 05/28/16 07:55 Ketorolac Tromethamine 15 mg 15 mg Q6HR IV PUSH 05/26/16 12:00 05/31/16 11:59 05/28/16 08:30 (Vancomycin Inj/ NS 250 ml Inj) 262.5 ml @ 250 mls/hr Q24H IV 05/27/16 05:00 05/28/16 09:26 Miscellaneous Information SPECIFIC LAB TO BE [facility]... ONCE ONCE XX 05/29/16 04:45 05/29/16 04:46 (Protonix) 20 mg DAILY PO 05/27/16 09:00 05/28/16 08:30 (Decadron Inj) 4 mg Q8H IV PUSH 05/28/16 09:00 05/29/16 09:01 05/28/16 08:30 (D50w (Vial) Inj) 25 ml UNSCH PRN IV PUSH 05/28/16 08:15 (Glucagon Inj) 1 mg UNSCH PRN OTHER 05/28/16 08:15 Family History Reviewed. No h/o DM or CAD Social History Positive for alcohol and tobacco. History of IVDU w/ Heroin, occasional Marijuana. Physical Exam Vital Signs Vital Signs Date Time Temp Pulse Resp B/P Pulse Ox O2 Delivery O2 Flow Rate FiO2 2/28/17 11:33 98.0 68 18 135/87 95 05/28/16 07:37 98.0 73 20 148/77 97 05/28/16 07:12 68 05/28/16 02:58 97.4 67 18 121/58 95 05/27/16 23:06 98.4 79 18 142/86 97 05/27/16 21:28 72 05/27/16 19:53 98.1 69 18 173/79 97 05/27/16 15:45 98.1 73 20 136/91 97 Physical Exam GENERAL: This is a well-nourished, well-developed patient, in no apparent distress. Poorly Kempt. SKIN: No rashes, several lesions on lips and chin. Evidence of scratch cox noted. HEAD: Atraumatic. Normocephalic. No temporal or scalp tenderness. EYES: Pupils equal round and reactive. Extraocular motions intact. No scleral icterus. No injection or drainage. ENT: Nose with slight erythema on left side of face. Throat without erythema, tonsillar hypertrophy or exudate. Uvula midline. Airway patent. NECK: Trachea midline. Supple, nontender, no meningeal signs. Erythema noted. Submandibular LNs palpable. CARDIOVASCULAR: HS audible. No murmur appreciated. RESPIRATORY: Clear to auscultation. Breath sounds equal bilaterally. GASTROINTESTINAL: Abdomen soft, non-tender, nondistended. MUSCULOSKELETAL: Extremities without clubbing, cyanosis, or edema. No joint tenderness, effusion, or edema noted. No calf tenderness. Negative Homans sign bilaterally. NEUROLOGICAL: Awake and alert. Grossly Non focal Psych: cooperative IV line sites with no e/o infection. Laboratory Laboratory Tests Test 05/28/16 06:50 Creatinine 0.81 Estimat Glomerular Filtration 73 Rate Date/Time Procedure Status Source Growth 05/26/16 00:45 Aerobic Blood Culture - Preliminary Resulted Blood Peripheral NO GROWTH IN 2 DAYS 05/26/16 00:45 Anaerobic Blood Culture - Preliminary Resulted Blood Peripheral NO GROWTH IN 2 DAYS Result Diagram: 05/27/16 0504 05/28/16 0650 Imaging Last Impressions Abdomen/Pelvis CT 05/26/16 0147 Signed Impressions: Service Date/Time: Thursday, May 26, 2016 01:55 - CONCLUSION: 1. Right renal scarring and nonobstructing right renal calculus. 2. No acute inflammatory changes. 3. Diverticulosis. Igor Puri MD Maxillofacial CT 05/26/16 0133 Signed Impressions: Service Date/Time: Thursday, May 26, 2016 01:54 - CONCLUSION: 1. Extensive soft tissue swelling of the left base greatest in the infraorbital region characteristic of cellulitis. No evidence for abscess. Igor Puri MD Assessment and Plan Assessment and Plan Sepsis present on admission Left side facial cellulitis present on admission. Alcohol Abuse, Tobacco Abuse h/o IVDU w/ Heroin. Recs: DC Zosyn IV Continue Vanco IV (target 10-15) Nasal MRSA screen Mupirocin nasal ointment to reduce MRSA burden CHG bath to reduce burden of MRSA organisms. Would not recommend any further steroids unless cardiopulm compromise or airway issues. Follow cultures Follow clinically. d/w RN Eduarda Gonzales MD May 28, 2016 13:09 Eduarda Gonzales MD May 28, 2016 13:09
[2016-05-28] MEDS: MUPIROCIN 2% OINT 1 APPLIC/GM SYR EACH NARE SCH (20:08)
[2016-05-28 20:38] LABS: BASOPHIL % 0.2 % (0.0-2.0); EOSINOPHIL % 0.2 % (0.0-4.0); HEMATOCRIT 33.9 % (35.0-46.0); LYMPH % 19.8 % (9.0-44.0); LYMPHOCYTE # 0.6 TH/MM3 (1.0-4.8); MEAN CORPUSCULAR HEMOGLOBIN 34.5 PG (27.0-34.0); MEAN CORPUSCULAR HGB CONC 34.9 % (32.0-36.0); MONO % 9.7 % (0.0-8.0); NEUT % 70.1 % (16.0-70.0); PLATELET COUNT 67 TH/MM3 (150-450); RED BLOOD COUNT 3.43 MIL/MM3 (4.00-5.30); RED CELL DISTRIBUTION WIDTH 12.6 % (11.6-17.2); WHITE BLOOD COUNT 2.8 TH/MM3 (4.0-11.0)
[2016-05-28 20:39] LABS: HEMO FLAGS AUTO DIFF
[2016-05-28 21:03] LABS: BICARBONATE 24.9 MEQ/L (21.0-32.0); POTASSIUM 3.5 MEQ/L (3.5-5.1)
[2016-05-28 21:10] LABS: PLATELET ESTIMATE SMEAR LOW (NORMAL); PLATELET MORPHOLOGY ENLARGED (NORMAL); SCAN/DIFF AUTO DIFF CONFIRMED
[2016-05-29] VITALS: BP 158/70; PULSE 70; RESP 18; TEMP 97.4; O2SAT 98
[2016-05-29] MEDS: ACETAMINOPHEN/HYDROcodone 325 MG/10 MG TAB PO PRN ×6 (02:34→22:40)
[2016-05-29] MEDS: HYDROmorphone HCL PF 1 MG/ML VIAL IV PRN ×6 (03:55→23:37)
[2016-05-29] MEDS: MULTIVITAMIN INJ 10 ML, FOLIC ACID INJ 1 MG in SODIUM CHLORID 0.9% 500 ML INJ 500 ML IV SCH (03:57)
[2016-05-29 04:00] VITALS: BP 135/68; PULSE 65; RESP 16; TEMP 96.6; O2SAT 97
[2016-05-29] MEDS: CHLORHEXIDINE GLUCONATE 2 % 1 PACK (2 CLOTHS) TOPICAL SCH (04:00)
[2016-05-29] MEDS ORDERED: PHARMACY ORDERED LAB XX ONE (04:45)
[2016-05-29] MEDS: KETOROLAC TROMETHAMINE 30 MG/ML (IVP) VIAL IV PUSH SCH ×4 (06:46→22:39)
[2016-05-29] MEDS: INSULIN ASPART SUPPLEMENTAL SCALE SQ SCH ×4 (06:48→21:43)
[2016-05-29 08:00] VITALS: BP 158/89; PULSE 67; RESP 16; TEMP 97; O2SAT 98
[2016-05-29] MEDS: VANCOMYCIN INJ 1,250 MG in SODIUM CHLOR 0.9% 250 ML INJ 250 ML IV SCH (08:50)
[2016-05-29] MEDS: MUPIROCIN 2% OINT 1 APPLIC/GM SYR EACH NARE SCH ×2 (08:50→21:38)
[2016-05-29] MEDS: THIAMINE HCL 100 MG TAB PO SCH (08:50)
[2016-05-29] MEDS: PANTOPRAZOLE SOD 20 MG DELAYED RELEASE TAB PO SCH (08:50)
[2016-05-29] MEDS: SODIUM CHLORIDE 0.9% FLUSH 5 ML FLUSH FLUSH SCH ×2 (09:00→21:39)
[2016-05-29 12:00] VITALS: BP 167/87; PULSE 67; RESP 18; TEMP 96; O2SAT 97
[2016-05-29] MEDS ORDERED: PANT20 PO (13:59)
[2016-05-29] MEDS ORDERED: HYDR-3583 PO (13:59)
[2016-05-29] MEDS ORDERED: BACTOIN EACH NARE (13:59)
[2016-05-29] MEDS ORDERED: VITA100T2 PO (13:59)
--- NOTE | 2016-05-29 14:06 | HHI.DS ---
Discharge Summary Admission Date May 26, 2016 at 3:16 am Discharge Date: May 29, 2016 Admitting Diagnosis L Face Cellulitis (1) Facial cellulitis ICD Code: L03.211 (2) Alcohol abuse ICD Code: F10.10 (3) Thrombocytopenia ICD Code: D69.6 (4) Tobacco abuse ICD Code: Z72.0 Brief History - From Admission This is a 56-year-old female with a PMH of Alcohol Abuse, Tobacco Abuse and h/o IVDU w/ Heroin who presented to the ER w/ left-sided facial redness and swelling starting earlier today. Pt states she noticed a pimple above her left lip yesterday and "popped it". Today, woke up w/ left facial swelling and redness which has gotten progressively worse throughout the day, now involving her eye. Denies fever, chills or recent IVDU. On arrival, BP 134/79, HR 120, O2 sat 95% on RA, Temp 100.0. BP currently 127/79, HR 85. WBC 6.9. Platelets 66, previously 119 on 03/04/16. Chemistry essentially at baseline. Lactic Acid normal. UA with small LE. CT Maxillofacial with extensive soft tissue swelling of the left face characteristic of cellulitis, no abscess noted. S/p Blood Cultures, IV Vanc/Zosyn in ER. CBC/BMP: 05/28/16202405/28/162024 Significant Findings Laboratory Tests Test 05/27/16 05/27/16 05/28/16 05/28/16 05:04 07:50 06:50 16:16 Red Blood Count 3.54 MIL/MM3 (4.00-5.30) Hematocrit 34.5 % (35.0-46.0) Mean Corpuscular Hemoglobin 34.6 PG (27.0-34.0) Platelet Count 74 TH/MM3 (150-450) Neutrophils (%) (Auto) 75.4 % (16.0-70.0) Monocytes (%) (Auto) 8.3 % (0.0-8.0) Lymphocytes # (Auto) 0.8 TH/MM3 (1.0-4.8) Platelet Estimate LOW (NORMAL) Platelet Morphology Comment GIANT (NORMAL) Estimat Glomerular Filtration 79 ML/MIN (>89) 73 ML/MIN (>89) Rate Random Glucose 108 MG/DL (74-106) Calcium Level 8.2 MG/DL (8.5-10.1) Aspartate Amino Transf 44 U/L (15-37) (AST/SGOT) Total Protein 5.9 GM/DL (6.4-8.2) Albumin 2.5 GM/DL (3.4-5.0) Hepatitis C Antibody REACTIVE (NEGATIVE) Test 05/28/16 20:25 White Blood Count 2.8 TH/MM3 (4.0-11.0) Red Blood Count 3.43 MIL/MM3 (4.00-5.30) Hematocrit 33.9 % (35.0-46.0) Mean Corpuscular Hemoglobin 34.5 PG (27.0-34.0) Platelet Count 67 TH/MM3 (150-450) Neutrophils (%) (Auto) 70.1 % (16.0-70.0) Monocytes (%) (Auto) 9.7 % (0.0-8.0) Lymphocytes # (Auto) 0.6 TH/MM3 (1.0-4.8) Platelet Estimate LOW (NORMAL) Platelet Morphology Comment ENLARGED (NORMAL) Estimat Glomerular Filtration 67 ML/MIN (>89) Rate Random Glucose 207 MG/DL (74-106) Imaging Last Impressions Abdomen/Pelvis CT 05/26/16 0147 Signed Impressions: Service Date/Time: Thursday, May 26, 2016 01:55 - CONCLUSION: 1. Right renal scarring and nonobstructing right renal calculus. 2. No acute inflammatory changes. 3. Diverticulosis. Igor Puri MD Maxillofacial CT 05/26/16 0133 Signed Impressions: Service Date/Time: Thursday, May 26, 2016 01:54 - CONCLUSION: 1. Extensive soft tissue swelling of the left base greatest in the infraorbital region characteristic of cellulitis. No evidence for abscess. Igor Puri MD PE at Discharge GENERAL: Well-developed well-nourished. In no acute distress. SKIN: Warm and dry. Left cheek with erythema, warmth, and induration. HEENT: Normocephalic. Pupils equal and round. Mucous membranes pink and moist. Slightly swollen and tender left submandibular lymph node. Airway patent. Slight left periorbital swelling. CARDIOVASCULAR: Regular rate and rhythm. No murmur appreciated. RESPIRATORY: No accessory muscle use. Clear to auscultation. Breath sounds equal bilaterally. GASTROINTESTINAL: Abdomen soft, non-tender, nondistended. Bowel sounds x4. MUSCULOSKELETAL: No obvious deformities. No clubbing or cyanosis. No edema. NEUROLOGICAL: Awake and alert. No focal neurological deficits. Moves upper and lower extremities spontaneously. Normal speech. PSYCHIATRIC: Appropriate mood and affect; insight and judgment normal. Pt update on day of discharge Ms. William is doing well. No acute concerns. Denies any fever, chills. Discharge Time: > 30 minutes Discharge Instructions Follow up Referrals: Oral Maxillary Surgery - 1 Week with Hermes Laura DMD PCP Follow-up - 1 Week with Antonietta Bishop MD New Medications: Hydrocodone-Acetaminophen (Hydrocodone-Acetaminophen) 10-325 mg Tab 1 TAB PO Q6HR PRN Pain #28 TAB Mupirocin Nasal Oint (Bactroban Nasal Oint) 2% Oint 1 APPLIC EACH NARE BID Infection Days 10 TUBE Pantoprazole (Protonix) 20 Mg Tab 20 MG PO DAILY Reflux #30 TAB Thiamine (Vitamin B-1) 100 Mg Tab 100 MG PO DAILY Vitamin #30 TAB Mandy Cummings DO May 29, 2016 2:06 pm
[2016-05-29] MEDS ORDERED: LORA-392 PO (14:09)
--- NOTE | 2016-05-29 15:36 | HHI.PR ---
Subjective Remarks Follow up for left sided facial cellulitis. Ms. William is doing well. No fever, chills. Objective Vitals Vital Signs Date Time Temp Pulse Resp B/P Pulse Ox O2 Delivery O2 Flow Rate FiO2 05/29/16 12:00 96.0 67 18 167/87 97 05/29/16 08:00 97.0 67 16 158/89 98 05/29/16 04:00 96.6 65 16 135/68 97 05/29/16 00:00 97.4 70 18 158/70 98 05/28/16 20:00 96.3 63 16 135/89 99 05/28/16 18:00 96.4 64 18 161/89 97 05/28/16 17:13 12 05/28/16 15:57 97.5 67 20 153/82 98 I/O 05/28/16 05/28/16 05/28/16 05/29/16 05/29/16 05/29/16 07:00 15:00 23:00 07:00 15:00 23:00 Intake Total 720 ml Balance 720 ml Intake Oral 720 ml # Voids 4 Result Diagram: 05/28/16202405/28/162024 Imaging Last Impressions Abdomen/Pelvis CT 05/26/16 0147 Signed Impressions: Service Date/Time: Thursday, May 26, 2016 01:55 - CONCLUSION: 1. Right renal scarring and nonobstructing right renal calculus. 2. No acute inflammatory changes. 3. Diverticulosis. Igor Puri MD Maxillofacial CT 05/26/16 0133 Signed Impressions: Service Date/Time: Thursday, May 26, 2016 01:54 - CONCLUSION: 1. Extensive soft tissue swelling of the left base greatest in the infraorbital region characteristic of cellulitis. No evidence for abscess. Igor Puri MD Objective Remarks GENERAL: Alert, Oriented x 3, NAD SKIN: Warm and dry. HEAD: Normocephalic. Large indurated, erythematous area on the left face. EYES: No scleral icterus. No injection or drainage. NECK: Supple, trachea midline. No JVD or lymphadenopathy. CARDIOVASCULAR: Regular rate and rhythm without murmurs, gallops, or rubs. RESPIRATORY: Breath sounds equal bilaterally. No accessory muscle use. GASTROINTESTINAL: Abdomen soft, non-tender, nondistended. MUSCULOSKELETAL: No cyanosis, or edema. BACK: Nontender without obvious deformity. No CVA tenderness. Procedures None. A/P Problem List: (1) Facial cellulitis ICD Code: L03.211 Status: Acute (2) Alcohol abuse ICD Code: F10.10 Status: Acute (3) Thrombocytopenia ICD Code: D69.6 Status: Acute (4) Tobacco abuse ICD Code: Z72.0 Status: Acute Assessment and Plan 56-year-old female with a PMH of Alcohol Abuse, Tobacco Abuse and remote h/o IVDU w/ Heroin who presented to the ER with a 1 day history of significant left- sided facial redness and swelling. Sepsis with Left Facial Cellulitis: acute left facial erythema/edema starting after popping pimple above left lip 05/24. Febrile, tachycardic HR 120, but no leukocytosis. -CT Maxillofacial w/ extensive left sided facial cellulitis, no specific abscess noted. -Blood Cultures with NGTD -D/C vanco and start Clindamycin and Bactrim per ID recommendations. -Pain control with [place] prn and IV Dilaudid prn breakthrough pain. -Scheduled IV Toradol 15mg q6h x5days with prophylactic PPI -Consulted maxillofacial surgery and ID. Will request Dr. Laura to evaluate patient again for possible I&D. - Received IV Decadron 4 doses for swelling Borderline/pre diabetes: Blood glucose reasonable, somewhat elevated due to steroid. hemoglobin A1c, 5.8. Will cover with sliding scale insulin and monitor Accu-Cheks while on steroids as above. Alcohol Abuse: By history, patient denies. No signs of withdrawal. Ativan prn, MVT/Thiamine/Folate replacement. Thrombocytopenia: Chronic upon review previous labs. Stable. No active bleeding. CBC in the AM. Elevated LFTs: AST and ALT minimally elevated at admission, improved on repeat labs. Tobacco Abuse: Counselled. NicoDerm if needed. Will hold discharge today. Waiting to hear from Dr. Laura. Depending on Dr. Laura's recommendations, possible discharge tomorrow 05/30/2016. Mandy Cummings DO May 29, 2016 3:36 pm
[2016-05-29 15:50] VITALS: BP 152/86; PULSE 65; RESP 20; TEMP 98.7; O2SAT 98
[2016-05-29] MEDS: CLINDAMYCIN 150 MG CAP PO SCH ×2 (17:44→22:39)
[2016-05-29] MEDS: LACTOBACILLUS ACIDOPHILUS TAB PO SCH (17:44)
--- NOTE | 2016-05-29 18:52 | HHI.IDPN ---
Subjective Subjective Remarks is a 56-year-old female with past medical history significant for alcohol abuse, tobacco abuse as well as IV drug abuse with heroin. With this background patient presented to the emergency room at [facility] with left-sided redness and swelling encroaching upon her left eye. Patient reports that she plucks her upper lip hair and she noticed that she has several boils in that region. She picked on one of the boils and popped it. The next day when she woke up she noticed that her entire left side of face was swollen and erythematous. Discussed progressively worse throughout the day. Patient denies any fever or chills or night sweats. Denies ongoing IV drug abuse. Delayed entry patient seen at ~ 11 am. ID following for left facial cellulitis. Thinks left side face better, Eye swelling down. No fever No rash No diarrhea Antibiotics Vancomycin IV Lines Line sites with no evidence of infection Past Medical History Hepatitis C Allergies: Coded Allergies: Codeine (Verified Allergy, Severe, SWELLING HIVES, 05/26/16) *MDRO Multi-Drug Resistant Organism (Verified Adverse Reaction, Unknown, MRSA, 05/28/16) MRSA PCR (nares) POSITIVE - 05/28/16 Objective . Vital Signs Date Time Temp Pulse Resp B/P Pulse Ox O2 Delivery O2 Flow Rate FiO2 05/29/16 15:50 98.7 65 20 152/86 98 05/29/16 12:00 96.0 67 18 167/87 97 05/29/16 08:00 97.0 67 16 158/89 98 05/29/16 04:00 96.6 65 16 135/68 97 05/29/16 00:00 97.4 70 18 158/70 98 05/28/16 20:00 96.3 63 16 135/89 99 05/28/16 05/28/16 05/29/16 15:00 23:00 07:00 Intake Total 720 ml Balance 720 ml Intake Oral 720 ml # Voids 4 . Laboratory Tests Test 05/28/16 20:25 White Blood Count 2.8 TH/MM3 Red Blood Count 3.43 MIL/MM3 Hemoglobin 11.8 GM/DL Hematocrit 33.9 % Mean Corpuscular Volume 99.0 FL Mean Corpuscular Hemoglobin 34.5 PG Mean Corpuscular Hemoglobin 34.9 % Concent Red Cell Distribution Width 12.6 % Platelet Count 67 TH/MM3 Mean Platelet Volume 10.5 FL Neutrophils (%) (Auto) 70.1 % Lymphocytes (%) (Auto) 19.8 % Monocytes (%) (Auto) 9.7 % Eosinophils (%) (Auto) 0.2 % Basophils (%) (Auto) 0.2 % Neutrophils # (Auto) 2.0 TH/MM3 Lymphocytes # (Auto) 0.6 TH/MM3 Monocytes # (Auto) 0.3 TH/MM3 Eosinophils # (Auto) 0.0 TH/MM3 Basophils # (Auto) 0.0 TH/MM3 CBC Comment AUTO DIFF Differential Comment AUTO DIFF CONFIRMED Platelet Estimate LOW Platelet Morphology Comment ENLARGED Laboratory Tests Test 05/28/16 05/28/16 06:50 20:25 Creatinine 0.81 MG/DL 0.88 MG/DL Estimat Glomerular Filtration 73 ML/MIN 67 ML/MIN Rate Sodium Level 138 MEQ/L Potassium Level 3.5 MEQ/L Chloride Level 104 MEQ/L Carbon Dioxide Level 24.9 MEQ/L Anion Gap 9 MEQ/L Blood Urea Nitrogen 12 MG/DL Random Glucose 207 MG/DL Calcium Level 8.6 MG/DL Imaging Last Impressions Abdomen/Pelvis CT 05/26/16 0147 Signed Impressions: Service Date/Time: Thursday, May 26, 2016 01:55 - CONCLUSION: 1. Right renal scarring and nonobstructing right renal calculus. 2. No acute inflammatory changes. 3. Diverticulosis. Igor Puri MD Maxillofacial CT 05/26/16 0133 Signed Impressions: Service Date/Time: Thursday, May 26, 2016 01:54 - CONCLUSION: 1. Extensive soft tissue swelling of the left base greatest in the infraorbital region characteristic of cellulitis. No evidence for abscess. Igor Puri MD Physical Exam GENERAL: This is a well-nourished, well-developed patient, in no apparent distress. Poorly Kempt. SKIN: No rashes, several lesions on lips and chin. Evidence of scratch cox noted. HEAD: Atraumatic. Normocephalic. No temporal or scalp tenderness. EYES: Pupils equal round and reactive. Extraocular motions intact. No scleral icterus. No injection or drainage. ENT: Nose with slight erythema on left side of face. Left cheek with erythema and significant induration noted slightly better but more firm in consistency. Throat without erythema, tonsillar hypertrophy or exudate. Uvula midline. Airway patent. NECK: Trachea midline. Supple, nontender, no meningeal signs. Erythema noted. Submandibular LNs palpable. CARDIOVASCULAR: HS audible. No murmur appreciated. RESPIRATORY: Clear to auscultation. Breath sounds equal bilaterally. GASTROINTESTINAL: Abdomen soft, non-tender, nondistended. MUSCULOSKELETAL: Extremities without clubbing, cyanosis, or edema. No joint tenderness, effusion, or edema noted. No calf tenderness. Negative Homans sign bilaterally. NEUROLOGICAL: Awake and alert. Grossly Non focal Psych: cooperative IV line sites with no e/o infection. Assessment & Plan Remarks Sepsis present on admission Leukopenia new onset Thrombocytopenia present on admission worsening. Left side facial cellulitis present on admission. Alcohol Abuse, Tobacco Abuse h/o IVDU w/ Heroin. Hepatitis C antibody positive. Recs: Discontinue vancomycin IV (? Cause for leukopenia and thrombocytopenia) Start clindamycin Start Bactrim Follow clinically if continues to improve will transition to oral in a.m. If clinically does not appear to improve may need to reconsult maxillofacial surgery. Nasal MRSA screen Mupirocin nasal ointment to reduce MRSA burden CHG bath to reduce burden of MRSA organisms. Would not recommend any further steroids unless cardiopulm compromise or airway issues. Follow cultures Follow clinically. d/w RN Discussed with Eduarda Ann MD May 29, 2016 18:52
[2016-05-29 20:00] VITALS: BP 142/79; PULSE 73; RESP 18; TEMP 98.1; O2SAT 95
[2016-05-29] MEDS: SULFAMETHOXAZOLE-TRIMETHOPRIM DS 800-160 MG TAB PO SCH (21:38)
[2016-05-29] MEDS: LORazepam 2 MG/ML VIAL IV PUSH PRN (21:39)
[2016-05-29] MEDS ORDERED: VANCOMYCIN INJ 1,750 MG in SODIUM CHLORID 0.9% 500 ML INJ 500 ML IV SCH (23:00)
[2016-05-30] VITALS (7 sets, daily range): BP systolic 137–162; BP diastolic 74–93; PULSE 66–75; RESP 16–18; TEMP 96.5–98.7; O2SAT 94–100
[2016-05-30] MEDS: MULTIVITAMIN INJ 10 ML, FOLIC ACID INJ 1 MG in SODIUM CHLORID 0.9% 500 ML INJ 500 ML IV SCH (03:56)
[2016-05-30] MEDS: CHLORHEXIDINE GLUCONATE 2 % 1 PACK (2 CLOTHS) TOPICAL SCH (03:58)
[2016-05-30] MEDS: ACETAMINOPHEN/HYDROcodone 325 MG/10 MG TAB PO PRN ×5 (03:58→22:20)
[2016-05-30] MEDS: CLINDAMYCIN 150 MG CAP PO SCH ×4 (04:53→22:46)
[2016-05-30] MEDS: HYDROmorphone HCL PF 1 MG/ML VIAL IV PRN ×6 (04:53→23:45)
[2016-05-30] MEDS: KETOROLAC TROMETHAMINE 30 MG/ML (IVP) VIAL IV PUSH SCH ×4 (04:54→22:47)
[2016-05-30] MEDS: INSULIN ASPART SUPPLEMENTAL SCALE SQ SCH ×3 (04:54→16:00)
--- NOTE | 2016-05-30 07:22 | HHI.PR ---
Subjective Remarks pt seen and examined AAOx3, reports some left pain discomfort Objective Vital Signs Date Time Temp Pulse Resp B/P Pulse Ox O2 Delivery O2 Flow Rate FiO2 05/30/16 04:00 97.8 74 18 162/93 97 05/30/16 00:00 98.7 66 18 148/84 96 05/29/16 20:00 98.1 73 18 142/79 95 05/29/16 15:50 98.7 65 20 152/86 98 05/29/16 12:00 96.0 67 18 167/87 97 05/29/16 08:00 97.0 67 16 158/89 98 I/O 05/29/16 05/29/16 05/29/16 05/30/16 05/30/16 05/30/16 07:00 15:00 23:00 07:00 15:00 23:00 Intake Total 720 ml 924 ml 720 ml 720 ml Balance 720 ml 924 ml 720 ml 720 ml Intake Oral 720 ml 924 ml 720 ml 720 ml # Voids 4 5 3 2 # Bowel Movements 0 Result Diagram: 05/28/16202405/28/162024 Objective Remarks left facial edema, well circumscribed + tenderness, appears fluctuant, eye wide open decreased erythema Assessment and Plan Assessment and Plan s/p popping pimple left face hx of MRSA now with left facial edema, which appears to have collection plan for I&D at bedside this afternoon Hermes Laura DMD May 30, 2016 07:22
[2016-05-30 07:44] LABS: AUTOMATED NEUTROPHIL # 2.1 TH/MM3 (1.8-7.7); BASOPHIL % 0.6 % (0.0-2.0); EOSINOPHIL # 0.1 TH/MM3 (0-0.4); EOSINOPHIL % 2.4 % (0.0-4.0); HEMATOCRIT 34.7 % (35.0-46.0); LYMPH % 36.7 % (9.0-44.0); LYMPHOCYTE # 1.5 TH/MM3 (1.0-4.8); MEAN CORPUSCULAR HEMOGLOBIN 34.1 PG (27.0-34.0); MEAN CORPUSCULAR HGB CONC 34.4 % (32.0-36.0); MONO % 10.5 % (0.0-8.0); NEUT % 49.8 % (16.0-70.0); PLATELET COUNT 94 TH/MM3 (150-450); RED BLOOD COUNT 3.51 MIL/MM3 (4.00-5.30); RED CELL DISTRIBUTION WIDTH 12.7 % (11.6-17.2); WHITE BLOOD COUNT 4.2 TH/MM3 (4.0-11.0)
[2016-05-30 07:58] LABS: BICARBONATE 25.8 MEQ/L (21.0-32.0); POTASSIUM 3.7 MEQ/L (3.5-5.1)
[2016-05-30 08:01] LABS: HEMO FLAGS AUTO DIFF
[2016-05-30] MEDS: MUPIROCIN 2% OINT 1 APPLIC/GM SYR EACH NARE SCH ×2 (08:15→20:08)
[2016-05-30] MEDS: SULFAMETHOXAZOLE-TRIMETHOPRIM DS 800-160 MG TAB PO SCH ×2 (08:15→20:08)
[2016-05-30] MEDS: LACTOBACILLUS ACIDOPHILUS TAB PO SCH ×3 (08:16→18:12)
[2016-05-30] MEDS: PANTOPRAZOLE SOD 20 MG DELAYED RELEASE TAB PO SCH (08:16)
[2016-05-30] MEDS: THIAMINE HCL 100 MG TAB PO SCH (08:17)
[2016-05-30] MEDS: SODIUM CHLORIDE 0.9% FLUSH 5 ML FLUSH FLUSH SCH ×2 (08:18→20:10)
[2016-05-30 10:44] LABS: PLATELET ESTIMATE SMEAR LOW (NORMAL); PLATELET MORPHOLOGY ENLARGED (NORMAL); SCAN/DIFF AUTO DIFF CONFIRMED
[2016-05-30] MEDS ORDERED: LIDOCAINE HCL 2% 50 ML VIAL SCH (11:45)
--- NOTE | 2016-05-30 12:47 | HHI.PR ---
Immediate Post Op Note Procedure Date: May 30, 2016 Pre Op Diagnosis: Left face abscess Post Op Diagnosis: mandy Surgeon: Hermes Laura Wafer Batter Mixer(s): nurse gomez Procedure: I & D left face abscess/edema Findings: 20 cc pus Complications: none Specimen(s) removed: pus sent for culture Estimated blood loss: 3 cc Anesthesia: Local (2 %lidocaine 4 cc) Drains: [place] (x 2 1/4 inch) Patient to: Other (at bedside) Patient Condition: Good Date/Time of Procedure: SEE SURGICAL CARE RECORD Hermes Laura DMD May 30, 2016 12:47
--- NOTE | 2016-05-30 16:00 | HHI.IDPN ---
Subjective Subjective Remarks is a 56-year-old female with past medical history significant for alcohol abuse, tobacco abuse as well as IV drug abuse with heroin. With this background patient presented to the emergency room at [facility] with left-sided redness and swelling encroaching upon her left eye. Patient reports that she plucks her upper lip hair and she noticed that she has several boils in that region. She picked on one of the boils and popped it. The next day when she woke up she noticed that her entire left side of face was swollen and erythematous. Discussed progressively worse throughout the day. Patient denies any fever or chills or night sweats. Denies ongoing IV drug abuse. Delayed entry patient seen at ~ 11 am. ID following for left facial cellulitis. Thinks left side face better, Eye swelling down. No fever No rash No diarrhea Antibiotics Vancomycin IV Lines Line sites with no evidence of infection Past Medical History Hepatitis C Allergies: Coded Allergies: Codeine (Verified Allergy, Severe, SWELLING HIVES, 05/26/16) *MDRO Multi-Drug Resistant Organism (Verified Adverse Reaction, Unknown, MRSA, 05/28/16) MRSA PCR (nares) POSITIVE - 05/28/16 Objective . Vital Signs Date Time Temp Pulse Resp B/P Pulse Ox O2 Delivery O2 Flow Rate FiO2 05/30/16 12:00 97.4 70 16 155/77 100 05/30/16 08:45 96.5 69 16 137/88 100 05/30/16 04:00 97.8 74 18 162/93 97 05/30/16 00:00 98.7 66 18 148/84 96 05/29/16 20:00 98.1 73 18 142/79 95 05/29/16 05/29/16 05/30/16 15:00 23:00 07:00 Intake Total 924 ml 720 ml 720 ml Balance 924 ml 720 ml 720 ml Intake Oral 924 ml 720 ml 720 ml # Voids 5 3 2 # Bowel Movements 0 . Laboratory Tests Test 05/28/16 05/30/16 20:25 06:05 White Blood Count 2.8 TH/MM3 4.2 TH/MM3 Red Blood Count 3.43 MIL/MM3 3.51 MIL/MM3 Hemoglobin 11.8 GM/DL 12.0 GM/DL Hematocrit 33.9 % 34.7 % Mean Corpuscular Volume 99.0 FL 99.0 FL Mean Corpuscular Hemoglobin 34.5 PG 34.1 PG Mean Corpuscular Hemoglobin 34.9 % 34.4 % Concent Red Cell Distribution Width 12.6 % 12.7 % Platelet Count 67 TH/MM3 94 TH/MM3 Mean Platelet Volume 10.5 FL 10.0 FL Neutrophils (%) (Auto) 70.1 % 49.8 % Lymphocytes (%) (Auto) 19.8 % 36.7 % Monocytes (%) (Auto) 9.7 % 10.5 % Eosinophils (%) (Auto) 0.2 % 2.4 % Basophils (%) (Auto) 0.2 % 0.6 % Neutrophils # (Auto) 2.0 TH/MM3 2.1 TH/MM3 Lymphocytes # (Auto) 0.6 TH/MM3 1.5 TH/MM3 Monocytes # (Auto) 0.3 TH/MM3 0.4 TH/MM3 Eosinophils # (Auto) 0.0 TH/MM3 0.1 TH/MM3 Basophils # (Auto) 0.0 TH/MM3 0.0 TH/MM3 CBC Comment AUTO DIFF AUTO DIFF Differential Comment AUTO DIFF AUTO DIFF CONFIRMED CONFIRMED Platelet Estimate LOW LOW Platelet Morphology Comment ENLARGED ENLARGED Laboratory Tests Test 05/28/16 05/30/16 20:25 06:05 Sodium Level 138 MEQ/L 141 MEQ/L Potassium Level 3.5 MEQ/L 3.7 MEQ/L Chloride Level 104 MEQ/L 105 MEQ/L Carbon Dioxide Level 24.9 MEQ/L 25.8 MEQ/L Anion Gap 9 MEQ/L 10 MEQ/L Blood Urea Nitrogen 12 MG/DL 10 MG/DL Creatinine 0.88 MG/DL 0.79 MG/DL Estimat Glomerular Filtration 67 ML/MIN 76 ML/MIN Rate Random Glucose 207 MG/DL 116 MG/DL Calcium Level 8.6 MG/DL 8.5 MG/DL Microbiology Date/Time Procedure Status Source Growth 05/30/16 11:45 Gram Stain Received Abscess Face Pending 05/30/16 11:45 Wound Culture Received Abscess Face Pending 05/30/16 11:45 Acid Fast Stain Received Abscess Face Pending 05/30/16 11:45 Mycobacterial Culture Received Abscess Face Pending 05/30/16 11:45 Fungal Smear Received Abscess Face Pending 05/30/16 11:45 Fungal Culture Received Abscess Face Pending Imaging Last Impressions Abdomen/Pelvis CT 05/26/16 0147 Signed Impressions: Service Date/Time: Thursday, May 26, 2016 01:55 - CONCLUSION: 1. Right renal scarring and nonobstructing right renal calculus. 2. No acute inflammatory changes. 3. Diverticulosis. Igor Puri MD Maxillofacial CT 05/26/16 0133 Signed Impressions: Service Date/Time: Thursday, May 26, 2016 01:54 - CONCLUSION: 1. Extensive soft tissue swelling of the left base greatest in the infraorbital region characteristic of cellulitis. No evidence for abscess. Igor Puri MD Physical Exam GENERAL: This is a well-nourished, well-developed patient, in no apparent distress. Poorly Kempt. SKIN: No rashes, several lesions on lips and chin. Evidence of scratch cox noted. HEAD: Atraumatic. Normocephalic. No temporal or scalp tenderness. EYES: Pupils equal round and reactive. Extraocular motions intact. No scleral icterus. No injection or drainage. ENT: Nose with slight erythema on left side of face. Left cheek with erythema and significant induration noted slightly better but more firm in consistency. Throat without erythema, tonsillar hypertrophy or exudate. Uvula midline. Airway patent. NECK: Trachea midline. Supple, nontender, no meningeal signs. Erythema noted. Submandibular LNs palpable. CARDIOVASCULAR: HS audible. No murmur appreciated. RESPIRATORY: Clear to auscultation. Breath sounds equal bilaterally. GASTROINTESTINAL: Abdomen soft, non-tender, nondistended. MUSCULOSKELETAL: Extremities without clubbing, cyanosis, or edema. No joint tenderness, effusion, or edema noted. No calf tenderness. Negative Homans sign bilaterally. NEUROLOGICAL: Awake and alert. Grossly Non focal Psych: cooperative IV line sites with no e/o infection. Assessment & Plan Remarks Sepsis present on admission Leukopenia new onset Thrombocytopenia present on admission worsening. Left side facial cellulitis/ abscess present on admission. Alcohol Abuse, Tobacco Abuse h/o IVDU w/ Heroin. Hepatitis C antibody positive. Recs: Clinically worse today needs drainage. Continue clindamycin Continue Bactrim Seen by maxillofacial surgery. Plan for bedside debridement. Follow cultures Follow clinically. d/w RN Discussed with Dr. Souza, pt Eduarda Gonzlaes MD May 30, 2016 16:00
--- NOTE | 2016-05-30 17:01 | HHI.PR ---
Subjective Remarks Follow up for left sided facial abscess. Patient underwent bedside I&D today by Oral surgery. Patient is currently in a lot of pain. No fever, chills. Objective Vitals Vital Signs Date Time Temp Pulse Resp B/P Pulse Ox O2 Delivery O2 Flow Rate FiO2 05/30/16 12:00 97.4 70 16 155/77 100 05/30/16 08:45 96.5 69 16 137/88 100 05/30/16 04:00 97.8 74 18 162/93 97 05/30/16 00:00 98.7 66 18 148/84 96 05/29/16 20:00 98.1 73 18 142/79 95 I/O 05/29/16 05/29/16 05/29/16 05/30/16 05/30/16 05/30/16 07:00 15:00 23:00 07:00 15:00 23:00 Intake Total 720 ml 924 ml 720 ml 720 ml Balance 720 ml 924 ml 720 ml 720 ml Intake Oral 720 ml 924 ml 720 ml 720 ml # Voids 4 5 3 2 # Bowel Movements 0 Result Diagram: 05/30/16 0605 05/30/16 0605 Imaging Last Impressions Abdomen/Pelvis CT 05/26/16 0147 Signed Impressions: Service Date/Time: Thursday, May 26, 2016 01:55 - CONCLUSION: 1. Right renal scarring and nonobstructing right renal calculus. 2. No acute inflammatory changes. 3. Diverticulosis. Igor Puri MD Maxillofacial CT 05/26/16 0133 Signed Impressions: Service Date/Time: Thursday, May 26, 2016 01:54 - CONCLUSION: 1. Extensive soft tissue swelling of the left base greatest in the infraorbital region characteristic of cellulitis. No evidence for abscess. Igor Puri MD Objective Remarks GENERAL: Alert, Oriented x 3, NAD SKIN: Warm and dry. HEAD: Normocephalic. Large indurated, erythematous area on the left face. s/p I& D EYES: No scleral icterus. No injection or drainage. NECK: Supple, trachea midline. No JVD or lymphadenopathy. CARDIOVASCULAR: Regular rate and rhythm without murmurs, gallops, or rubs. RESPIRATORY: Breath sounds equal bilaterally. No accessory muscle use. GASTROINTESTINAL: Abdomen soft, non-tender, nondistended. MUSCULOSKELETAL: No cyanosis, or edema. BACK: Nontender without obvious deformity. No CVA tenderness. Procedures I&D left face abscess 05/30/2016. A/P Problem List: (1) Facial cellulitis ICD Code: L03.211 Status: Acute (2) Alcohol abuse ICD Code: F10.10 Status: Acute (3) Thrombocytopenia ICD Code: D69.6 Status: Acute (4) Tobacco abuse ICD Code: Z72.0 Status: Acute Assessment and Plan 56-year-old female with a PMH of Alcohol Abuse, Tobacco Abuse and remote h/o IVDU w/ Heroin who presented to the ER with a 1 day history of significant left- sided facial redness and swelling. Sepsis with Left Facial Cellulitis: acute left facial erythema/edema starting after popping pimple above left lip 05/24. Febrile, tachycardic HR 120, but no leukocytosis. Left facial abscess. -CT Maxillofacial w/ extensive left sided facial cellulitis, no specific abscess noted. -Blood Cultures with NGTD -D/C vanco and start Clindamycin and Bactrim per ID recommendations. -Pain control with [place] prn and IV Dilaudid prn breakthrough pain. -Scheduled IV Toradol 15mg q6h x5days with prophylactic PPI -Consulted maxillofacial surgery and ID. Dr. Laura performed bedside I&D today. -Received IV Decadron 4 doses for swelling Borderline/pre diabetes: Blood glucose reasonable. Hemoglobin A1c, 5.8. Will d/ c Accucheck. Alcohol Abuse: By history, patient denies. No signs of withdrawal. Ativan prn, MVT/Thiamine/Folate replacement. Thrombocytopenia: Improved - 94K on 05/30/2016. Elevated LFTs: AST and ALT minimally elevated at admission, improved on repeat labs. Tobacco Abuse: Counselled. NicoDerm if needed. Full code. SCDs. D/C telemetry. Expect to discharge patient on 06/01/2016. Mandy Cummings DO May 30, 2016 5:01 pm
[2016-05-30] MEDS: LORazepam 2 MG/ML VIAL IV PUSH PRN (22:47)
[2016-05-31] MEDS: ACETAMINOPHEN/HYDROcodone 325 MG/10 MG TAB PO PRN ×5 (03:22→21:31)
[2016-05-31] MEDS: CHLORHEXIDINE GLUCONATE 2 % 1 PACK (2 CLOTHS) TOPICAL SCH (03:23)
[2016-05-31] MEDS: KETOROLAC TROMETHAMINE 30 MG/ML (IVP) VIAL IV PUSH SCH (05:19)
[2016-05-31] MEDS: CLINDAMYCIN 150 MG CAP PO SCH ×4 (05:19→23:02)
[2016-05-31] MEDS: HYDROmorphone HCL PF 1 MG/ML VIAL IV PRN ×6 (05:22→23:02)
--- NOTE | 2016-05-31 07:30 | HHI.PR ---
Subjective Remarks POD 1 s/p I&D left facial abscess pt seen and examined AAOx3, reports some soreness left face, but feels much better, less pain tolerating po well Objective Vital Signs Date Time Temp Pulse Resp B/P Pulse Ox O2 Delivery O2 Flow Rate FiO2 05/31/16 06:22 20 05/31/16 06:00 20 05/31/16 04:25 20 05/30/16 23:58 97.5 75 17 140/74 94 05/30/16 20:00 97.1 75 17 138/82 97 05/30/16 16:00 98.0 71 16 146/88 97 05/30/16 12:00 97.4 70 16 155/77 100 05/30/16 08:45 96.5 69 16 137/88 100 I/O 05/30/16 05/30/16 05/30/16 05/31/16 05/31/16 05/31/16 07:00 15:00 23:00 07:00 15:00 23:00 Intake Total 720 ml 480 ml 480 ml 240 ml Output Total 3 ml Balance 720 ml 480 ml 477 ml 240 ml Intake Oral 720 ml 480 ml 480 ml 240 ml Output Urine Total 3 ml # Voids 2 2 # Bowel Movements 0 0 Result Diagram: 05/30/16 0605 05/30/16 0605 Objective Remarks left facial edema, significantly decreased decreased tenderness, no fluctuance noted eye wide open decreased erythema, drains in place, no gross discharge noted wbc increased to normal range Assessment and Plan Assessment and Plan s/p popping pimple left face POD 1 s/p I&D left facial abscess hx of MRSA afebrile, wbc in normal range much improved from yesterday micro pending plan for removal [place] drains tomorrow Hermes Laura DMD May 31, 2016 07:29
[2016-05-31 08:00] VITALS: BP 115/68; PULSE 72; RESP 16; TEMP 96.7; O2SAT 97
[2016-05-31] MEDS: SULFAMETHOXAZOLE-TRIMETHOPRIM DS 800-160 MG TAB PO SCH ×2 (08:03→20:13)
[2016-05-31] MEDS: PANTOPRAZOLE SOD 20 MG DELAYED RELEASE TAB PO SCH (08:03)
[2016-05-31] MEDS: LACTOBACILLUS ACIDOPHILUS TAB PO SCH ×3 (08:03→17:20)
[2016-05-31] MEDS: THIAMINE HCL 100 MG TAB PO SCH (08:04)
[2016-05-31] MEDS: MUPIROCIN 2% OINT 1 APPLIC/GM SYR EACH NARE SCH ×2 (08:04→20:11)
[2016-05-31] MEDS: SODIUM CHLORIDE 0.9% FLUSH 5 ML FLUSH FLUSH SCH ×2 (08:05→20:14)
[2016-05-31 09:51] VITALS: BP 114/71; PULSE 77; RESP 16; TEMP 97.1; O2SAT 91
--- NOTE | 2016-05-31 12:10 | MP ---
cc: HERMES LAURA DMD DATE OF SURGERY: 05/30/2016 PREOPERATIVE DIAGNOSIS: Left facial abscess. POSTOPERATIVE DIAGNOSIS: Left facial abscess. OPERATION: Incision and drainage, left face abscess / edema. SURGEON Dr. Laura PERSONAL TRAINER The patient's nurse Beba/Charge nurse. ANESTHESIA Local 2% lidocaine approximately 3 cc. ESTIMATED BLOOD LOSS: Approximately 3 cc DRAINS: Phill drains times two 0.25 inch DISPOSITION The patient tolerated procedure well. The procedure was done at bedside. The patient the procedures done at bedside. COMPLICATIONS None INDICATIONS FOR PROCEDURE A 56-year-old female who several days ago popped a pimple on the left lower lip. She present to the hospital with a swelling of the left side of the face. I had seen her several days ago though the face had some edema, more cellulitic. No drainable palpable collection was noted. I was recalled back for a consultation yesterday evening for evaluation of the patient by Emiliano. I saw the patient this morning and felt that it was necessary that the patient undergo this incision and drainage. Benefits, risks indication of the procedure, procedure in detail and the options of no treatment all discussed with this patient. There is not limited to postop pain, infection, bleeding, damage to the adjacent soft tissue, hard tissue anesthesia complications, recurrence of infection, further procedures as required. All questions and concerns were addressed. Consent is signed in the chart. PRESENT DETAILS: As follows, again the patient was examined and the areas of induration and collection was palpated on the left side of the face. A time-out was taken to identify the patient the site and the procedure surgeon. The patient was now prepped with Betadine solution. 2% lidocaine was injected in the inferior aspect of the face. Once this was done a 10 cc syringe with an 18 gauge needle was placed from the bottom going up superiorly to the left side of the face. With aspiration I got 12 cc of pus, which came right out of it. I went to want to an area more medial to that region. Another about 3-4 cc's of pus came out at that. Note that the patient was draped in normal sterile fashion throughout this procedure. A 11 blade was used to make an incision where I went with the 18 gauge needle. Went and took a hemostat and blunt up to the face going to the infraorbital region laterally medially and inferiorly towards the nose and lateral aspect. More pus came out. Did that on the other side also. A previous stab incision. We then irrigated this whole area with the saline solution. Finally a quarter-inch Phill drain was placed to both the incision points on the left side of the face used 2-0 Prolene to secure the drain. Irrigated face again with saline solution. Finally a gauze was placed over the site. The patient tolerated the procedure well. No complications noted. The cultures have been sent for micro at this point. Hermes Laura DMD RRT/gus /12:49 PM /9:55 AM ARSEN
[2016-05-31 12:44] VITALS: BP 122/68; PULSE 79; RESP 16; TEMP 98.1; O2SAT 92
--- NOTE | 2016-05-31 13:17 | HHI.PR ---
Subjective Remarks Follow up for left sided facial abscess, s/p I&D. Patient is doing much better today. Denies any fever or chills. She wants to go home tomorrow. Objective Vitals Vital Signs Date Time Temp Pulse Resp B/P Pulse Ox O2 Delivery O2 Flow Rate FiO2 05/31/16 13:11 16 05/31/16 12:44 98.1 79 16 122/68 92 05/31/16 12:10 16 05/31/16 09:51 97.1 77 16 114/71 91 05/31/16 08:00 96.7 72 16 115/68 97 05/31/16 06:22 20 05/30/16 23:58 97.5 75 17 140/74 94 05/30/16 20:00 97.1 75 17 138/82 97 05/30/16 16:00 98.0 71 16 146/88 97 I/O 05/30/16 05/30/16 05/30/16 05/31/16 05/31/16 05/31/16 07:00 15:00 23:00 07:00 15:00 23:00 Intake Total 720 ml 480 ml 480 ml 240 ml Output Total 3 ml Balance 720 ml 480 ml 477 ml 240 ml Intake Oral 720 ml 480 ml 480 ml 240 ml Output Urine Total 3 ml # Voids 2 2 # Bowel Movements 0 0 Result Diagram: 05/30/16 0605 05/30/16 0605 Imaging Last Impressions Abdomen/Pelvis CT 05/26/16 0147 Signed Impressions: Service Date/Time: Thursday, May 26, 2016 01:55 - CONCLUSION: 1. Right renal scarring and nonobstructing right renal calculus. 2. No acute inflammatory changes. 3. Diverticulosis. Igor Puri MD Maxillofacial CT 05/26/16 0133 Signed Impressions: Service Date/Time: Thursday, May 26, 2016 01:54 - CONCLUSION: 1. Extensive soft tissue swelling of the left base greatest in the infraorbital region characteristic of cellulitis. No evidence for abscess. Igor Puri MD Objective Remarks GENERAL: Alert, Oriented x 3, NAD SKIN: Warm and dry. HEAD: Normocephalic. Large indurated, erythematous area on the left face. s/p I& D EYES: No scleral icterus. No injection or drainage. NECK: Supple, trachea midline. No JVD or lymphadenopathy. CARDIOVASCULAR: Regular rate and rhythm without murmurs, gallops, or rubs. RESPIRATORY: Breath sounds equal bilaterally. No accessory muscle use. GASTROINTESTINAL: Abdomen soft, non-tender, nondistended. MUSCULOSKELETAL: No cyanosis, or edema. BACK: Nontender without obvious deformity. No CVA tenderness. Procedures I&D left face abscess 05/30/2016. A/P Problem List: (1) Facial cellulitis ICD Code: L03.211 Status: Acute (2) Alcohol abuse ICD Code: F10.10 Status: Acute (3) Thrombocytopenia ICD Code: D69.6 Status: Acute (4) Tobacco abuse ICD Code: Z72.0 Status: Acute Assessment and Plan 56-year-old female with a PMH of Alcohol Abuse, Tobacco Abuse and remote h/o IVDU w/ Heroin who presented to the ER with a 1 day history of significant left- sided facial redness and swelling. Sepsis with Left Facial Cellulitis: acute left facial erythema/edema starting after popping pimple above left lip 05/24. Febrile, tachycardic HR 120, but no leukocytosis. Left facial abscess. -CT Maxillofacial w/ extensive left sided facial cellulitis, no specific abscess noted. -Blood Cultures with NGTD -Continue Clindamycin and Bactrim per ID recommendations. -Pain control with [place] prn and IV Dilaudid prn breakthrough pain. -Scheduled IV Toradol 15mg q6h x5days with prophylactic PPI -Consulted maxillofacial surgery and ID. Dr. Laura performed bedside I&D on 05/30/2016 -Received IV Decadron 4 doses for swelling Borderline/pre diabetes: Blood glucose reasonable. Hemoglobin A1c, 5.8. Will d/ c Accucheck. Alcohol Abuse: By history, patient denies. No signs of withdrawal. Ativan prn, MVT/Thiamine/Folate replacement. Thrombocytopenia: Improved - 94K on 05/30/2016. Elevated LFTs: AST and ALT minimally elevated at admission, improved on repeat labs. Tobacco Abuse: Counselled. NicoDerm if needed. Full code. SCDs. D/C telemetry. Expect to discharge patient on 06/01/2016. Mandy Cummings DO May 31, 2016 1:16 pm
--- NOTE | 2016-05-31 13:55 | HHI.IDPN ---
Subjective Subjective Remarks is a 56-year-old female with past medical history significant for alcohol abuse, tobacco abuse as well as IV drug abuse with heroin. With this background patient presented to the emergency room at [facility] with left-sided redness and swelling encroaching upon her left eye. Patient reports that she plucks her upper lip hair and she noticed that she has several boils in that region. She picked on one of the boils and popped it. The next day when she woke up she noticed that her entire left side of face was swollen and erythematous. Discussed progressively worse throughout the day. Patient denies any fever or chills or night sweats. Denies ongoing IV drug abuse. Delayed entry patient seen at ~ 11 am. ID following for left facial cellulitis. Thinks left side face better, Eye swelling down. No fever No rash No diarrhea Antibiotics Vancomycin IV Lines Line sites with no evidence of infection Past Medical History Hepatitis C Allergies: Coded Allergies: Codeine (Verified Allergy, Severe, SWELLING HIVES, 05/26/16) *MDRO Multi-Drug Resistant Organism (Verified Adverse Reaction, Unknown, MRSA, 05/28/16) MRSA PCR (nares) POSITIVE - 05/28/16 Objective . Vital Signs Date Time Temp Pulse Resp B/P Pulse Ox O2 Delivery O2 Flow Rate FiO2 05/31/16 13:11 16 05/31/16 12:44 98.1 79 16 122/68 92 05/31/16 12:10 16 05/31/16 09:51 97.1 77 16 114/71 91 05/31/16 08:00 96.7 72 16 115/68 97 05/31/16 06:22 20 05/30/16 23:58 97.5 75 17 140/74 94 05/30/16 20:00 97.1 75 17 138/82 97 05/30/16 16:00 98.0 71 16 146/88 97 05/30/16 05/30/16 05/31/16 15:00 23:00 07:00 Intake Total 480 ml 480 ml 240 ml Output Total 3 ml Balance 480 ml 477 ml 240 ml Intake Oral 480 ml 480 ml 240 ml Output Urine Total 3 ml # Voids 2 # Bowel Movements 0 0 . Laboratory Tests Test 05/30/16 06:05 White Blood Count 4.2 TH/MM3 Red Blood Count 3.51 MIL/MM3 Hemoglobin 12.0 GM/DL Hematocrit 34.7 % Mean Corpuscular Volume 99.0 FL Mean Corpuscular Hemoglobin 34.1 PG Mean Corpuscular Hemoglobin 34.4 % Concent Red Cell Distribution Width 12.7 % Platelet Count 94 TH/MM3 Mean Platelet Volume 10.0 FL Neutrophils (%) (Auto) 49.8 % Lymphocytes (%) (Auto) 36.7 % Monocytes (%) (Auto) 10.5 % Eosinophils (%) (Auto) 2.4 % Basophils (%) (Auto) 0.6 % Neutrophils # (Auto) 2.1 TH/MM3 Lymphocytes # (Auto) 1.5 TH/MM3 Monocytes # (Auto) 0.4 TH/MM3 Eosinophils # (Auto) 0.1 TH/MM3 Basophils # (Auto) 0.0 TH/MM3 CBC Comment AUTO DIFF Differential Comment AUTO DIFF CONFIRMED Platelet Estimate LOW Platelet Morphology Comment ENLARGED Laboratory Tests Test 05/30/16 06:05 Sodium Level 141 MEQ/L Potassium Level 3.7 MEQ/L Chloride Level 105 MEQ/L Carbon Dioxide Level 25.8 MEQ/L Anion Gap 10 MEQ/L Blood Urea Nitrogen 10 MG/DL Creatinine 0.79 MG/DL Estimat Glomerular Filtration 76 ML/MIN Rate Random Glucose 116 MG/DL Calcium Level 8.5 MG/DL Microbiology Date/Time Procedure Status Source Growth 05/30/16 11:45 Gram Stain - Final Resulted Abscess Face 05/30/16 11:45 Wound Culture - Preliminary Resulted S. Aureus Mrsa 05/30/16 11:45 Acid Fast Stain Worksheet Abscess Face Pending 05/30/16 11:45 Mycobacterial Culture Worksheet Abscess Face Pending 05/30/16 11:45 Fungal Smear - Final Resulted Abscess Face NO FUNGAL ELEMENTS SEEN. 05/30/16 11:45 Fungal Culture Resulted Abscess Face Pending Imaging Last Impressions Abdomen/Pelvis CT 05/26/16 0147 Signed Impressions: Service Date/Time: Thursday, May 26, 2016 01:55 - CONCLUSION: 1. Right renal scarring and nonobstructing right renal calculus. 2. No acute inflammatory changes. 3. Diverticulosis. Igor Puri MD Maxillofacial CT 05/26/16 0133 Signed Impressions: Service Date/Time: Thursday, May 26, 2016 01:54 - CONCLUSION: 1. Extensive soft tissue swelling of the left base greatest in the infraorbital region characteristic of cellulitis. No evidence for abscess. Igor Puri MD Physical Exam GENERAL: This is a well-nourished, well-developed patient, in no apparent distress. Poorly Kempt. SKIN: No rashes, several lesions on lips and chin. Evidence of scratch cox noted. HEAD: Atraumatic. Normocephalic. No temporal or scalp tenderness. EYES: Pupils equal round and reactive. Extraocular motions intact. No scleral icterus. No injection or drainage. ENT: Nose with slight erythema on left side of face. Left cheek with erythema and significant induration noted slightly better but more firm in consistency. Throat without erythema, tonsillar hypertrophy or exudate. Uvula midline. Airway patent. NECK: Trachea midline. Supple, nontender, no meningeal signs. Erythema noted. Submandibular LNs palpable. CARDIOVASCULAR: HS audible. No murmur appreciated. RESPIRATORY: Clear to auscultation. Breath sounds equal bilaterally. GASTROINTESTINAL: Abdomen soft, non-tender, nondistended. MUSCULOSKELETAL: Extremities without clubbing, cyanosis, or edema. No joint tenderness, effusion, or edema noted. No calf tenderness. Negative Homans sign bilaterally. NEUROLOGICAL: Awake and alert. Grossly Non focal Psych: cooperative IV line sites with no e/o infection. Assessment & Plan Remarks Sepsis present on admission Leukopenia new onset Thrombocytopenia present on admission worsening. Left side facial cellulitis/ abscess present on admission. Alcohol Abuse, Tobacco Abuse h/o IVDU w/ Heroin. Hepatitis C antibody positive. Recs: Continue clindamycin Continue Bactrim Follow cultures. Follow clinically. d/w RN Discussed with Dr. Souza, pt: depending on cultures ok to DC in am. Follow susceptibility to decide DC regimen. covering for me this weekend. Eduarda Gonzales MD May 31, 2016 13:55
[2016-05-31 16:00] VITALS: BP 148/81; PULSE 74; RESP 16; TEMP 97.4; O2SAT 97
[2016-05-31 20:00] VITALS: BP 167/74; PULSE 72; RESP 17; TEMP 97.9; O2SAT 95
[2016-05-31] MEDS: LORazepam 2 MG/ML VIAL IV PUSH PRN (21:31)
[2016-06-01] VITALS: BP 129/74; PULSE 82; RESP 17; TEMP 97; O2SAT 96
[2016-06-01] MEDS: ACETAMINOPHEN/HYDROcodone 325 MG/10 MG TAB PO PRN ×3 (01:40→10:41)
[2016-06-01] MEDS: HYDROmorphone HCL PF 1 MG/ML VIAL IV PRN ×3 (02:25→08:41)
[2016-06-01 04:00] VITALS: BP_SYST 117; PULSE 75; RESP 17; TEMP 98; O2SAT 94
[2016-06-01] MEDS: CHLORHEXIDINE GLUCONATE 2 % 1 PACK (2 CLOTHS) TOPICAL SCH (04:00)
[2016-06-01] MEDS: CLINDAMYCIN 150 MG CAP PO SCH ×2 (05:37→10:40)
[2016-06-01 08:15] VITALS: BP 132/73; PULSE 67; RESP 18; O2SAT 93
[2016-06-01] MEDS: LACTOBACILLUS ACIDOPHILUS TAB PO SCH (08:17)
[2016-06-01] MEDS: SULFAMETHOXAZOLE-TRIMETHOPRIM DS 800-160 MG TAB PO SCH (08:17)
[2016-06-01] MEDS: PANTOPRAZOLE SOD 20 MG DELAYED RELEASE TAB PO SCH (08:17)
[2016-06-01] MEDS: SODIUM CHLORIDE 0.9% FLUSH 5 ML FLUSH FLUSH SCH (08:18)
[2016-06-01] MEDS: THIAMINE HCL 100 MG TAB PO SCH (08:18)
[2016-06-01] MEDS: MUPIROCIN 2% OINT 1 APPLIC/GM SYR EACH NARE SCH (08:18)
[2016-06-01] MEDS: SODIUM CHLORIDE 0.9% FLUSH 5 ML FLUSH FLUSH PRN (08:41)
[2016-06-01] MEDS ORDERED: CLIN150 PO (08:54)
[2016-06-01] MEDS ORDERED: BACT800T5 PO ×2 (08:54→11:33)
--- NOTE | 2016-06-01 09:18 | HHI.DS ---
Discharge Summary Admission Date May 26, 2016 at 3:16 am Discharge Date: Jun 01, 2016 Admitting Diagnosis L Face Cellulitis (1) Facial abscess ICD Code: L02.01 Diagnosis: Principal (2) Alcohol abuse ICD Code: F10.10 (3) Thrombocytopenia ICD Code: D69.6 (4) Tobacco abuse ICD Code: Z72.0 Procedures I&D left face abscess 05/30/2016. Brief History - From Admission This is a 56-year-old female with a PMH of Alcohol Abuse, Tobacco Abuse and h/o IVDU w/ Heroin who presented to the ER w/ left-sided facial redness and swelling starting earlier today. Pt states she noticed a pimple above her left lip yesterday and "popped it". Today, woke up w/ left facial swelling and redness which has gotten progressively worse throughout the day, now involving her eye. Denies fever, chills or recent IVDU. On arrival, BP 134/79, HR 120, O2 sat 95% on RA, Temp 100.0. BP currently 127/79, HR 85. WBC 6.9. Platelets 66, previously 119 on 03/04/16. Chemistry essentially at baseline. Lactic Acid normal. UA with small LE. CT Maxillofacial with extensive soft tissue swelling of the left face characteristic of cellulitis, no abscess noted. S/p Blood Cultures, IV Vanc/Zosyn in ER. CBC/BMP: 05/30/16 0605 05/30/16 0605 Significant Findings Laboratory Tests Test 05/30/16 06:05 Red Blood Count 3.51 MIL/MM3 (4.00-5.30) Hematocrit 34.7 % (35.0-46.0) Mean Corpuscular Hemoglobin 34.1 PG (27.0-34.0) Platelet Count 94 TH/MM3 (150-450) Monocytes (%) (Auto) 10.5 % (0.0-8.0) Platelet Estimate LOW (NORMAL) Platelet Morphology Comment ENLARGED (NORMAL) Estimat Glomerular Filtration 76 ML/MIN (>89) Rate Random Glucose 116 MG/DL (74-106) Imaging Last Impressions Abdomen/Pelvis CT 05/26/16 0147 Signed Impressions: Service Date/Time: Thursday, May 26, 2016 01:55 - CONCLUSION: 1. Right renal scarring and nonobstructing right renal calculus. 2. No acute inflammatory changes. 3. Diverticulosis. Igor Puri MD Maxillofacial CT 05/26/16 0133 Signed Impressions: Service Date/Time: Thursday, May 26, 2016 01:54 - CONCLUSION: 1. Extensive soft tissue swelling of the left base greatest in the infraorbital region characteristic of cellulitis. No evidence for abscess. Igor Puri MD PE at Discharge GENERAL: Alert, Oriented x 3, NAD SKIN: Warm and dry. HEAD: Normocephalic. Large indurated, erythematous area on the left face. s/p I& D EYES: No scleral icterus. No injection or drainage. NECK: Supple, trachea midline. No JVD or lymphadenopathy. CARDIOVASCULAR: Regular rate and rhythm without murmurs, gallops, or rubs. RESPIRATORY: Breath sounds equal bilaterally. No accessory muscle use. GASTROINTESTINAL: Abdomen soft, non-tender, nondistended. MUSCULOSKELETAL: No cyanosis, or edema. BACK: Nontender without obvious deformity. No CVA tenderness. Pt update on day of discharge Ms. William is doing well. No acute concerns. She still has one drain but not draining much. No fever, chills. Wants to go home. Hospital Course 56-year-old female with a PMH of Alcohol Abuse, Tobacco Abuse and remote h/o IVDU w/ Heroin who presented to the ER with a 1 day history of significant left- sided facial redness and swelling. Sepsis with Left Facial Cellulitis: acute left facial erythema/edema starting after popping pimple above left lip 05/24. Febrile, tachycardic HR 120, but no leukocytosis. Left facial abscess. -CT Maxillofacial w/ extensive left sided facial cellulitis, no specific abscess noted. -Blood Cultures with NGTD -Continue Clindamycin and Bactrim per ID recommendations. - Based on the wound culture result (MRSA), We will discharge patient on Bactrim DS 1 tab BID X [address] Gonzales. Cx shows Clindamycin resistance. -Pain control with [place] prn and IV Dilaudid prn breakthrough pain. -Scheduled IV Toradol 15mg q6h x5days with prophylactic PPI -Consulted maxillofacial surgery and ID. Dr. Laura performed bedside I&D on 05/30/2016 -Received IV Decadron 4 doses for swelling Borderline/pre diabetes: Blood glucose reasonable. Hemoglobin A1c, 5.8. Will d/ c Accucheck. Alcohol Abuse: By history, patient denies. No signs of withdrawal. Ativan prn, MVT/Thiamine/Folate replacement. Thrombocytopenia: Improved - 94K on 05/30/2016. Elevated LFTs: AST and ALT minimally elevated at admission, improved on repeat labs. Tobacco Abuse: Counselled. NicoDerm if needed. Pt Condition on Discharge: Good Discharge Disposition: Discharge Home Discharge Time: > 30 minutes Discharge Instructions DIET: Follow Instructions for: As Tolerated, No Restrictions Activities you can perform: Regular-No Restrictions Follow up Referrals: Oral Maxillary Surgery - 1 Week with Hermes Laura DMD PCP Follow-up - 1 Week with Antonietta Bishop MD New Medications: Lorazepam (Ativan) 0.5 Mg Tab 0.5 MG PO HS PRN ANXIETY AND/OR AGITATION #10 Ref 0 TAB Sulfamethoxazole-Trimethoprim (Bactrim DS) 800-160 Mg Tab 1 TAB PO BID Infection #14 Ref 0 TAB Hydrocodone-Acetaminophen (Hydrocodone-Acetaminophen) 10-325 mg Tab 1 TAB PO Q6HR PRN Pain #28 TAB Mupirocin Nasal Oint (Bactroban Nasal Oint) 2% Oint 1 APPLIC EACH NARE BID Infection Days 10 TUBE Pantoprazole (Protonix) 20 Mg Tab 20 MG PO DAILY Reflux #30 TAB Thiamine (Vitamin B-1) 100 Mg Tab 100 MG PO DAILY Vitamin #30 TAB Mandy Cummings DO Jun 01, 2016 09:18 Mandy Cummings DO Jun 01, 2016 9:18 am
--- NOTE | 2016-06-01 10:35 | HHI.PR ---
Subjective Remarks POD 2 s/p I&D left facial abscess pt seen and examined AAOx3, report feeling good tolerating po well, wants to go home no complaints Objective Vital Signs Date Time Temp Pulse Resp B/P Pulse Ox O2 Delivery O2 Flow Rate FiO2 06/01/16 08:15 67 18 132/73 93 06/01/16 06:10 20 06/01/16 04:00 98.0 75 17 117/ 94 06/01/16 02:43 20 06/01/16 00:00 97.0 82 17 129/74 96 05/31/16 20:00 97.9 72 17 167/74 95 05/31/16 16:00 97.4 74 16 148/81 97 05/31/16 12:44 98.1 79 16 122/68 92 I/O 05/31/16 05/31/16 05/31/16 06/01/16 06/01/16 06/01/16 07:00 15:00 23:00 07:00 15:00 23:00 Intake Total 240 ml 680 ml 480 ml 480 ml Balance 240 ml 680 ml 480 ml 480 ml Intake Oral 240 ml 680 ml 480 ml 480 ml # Voids 2 4 # Bowel Movements 0 2 Result Diagram: 05/30/16 0605 05/30/16 0605 Objective Remarks left facial edema, significantly decreased decreased tenderness, no fluctuance noted eye wide open decreased erythema, drains in place, no gross discharge noted wbc increased to normal range t 98.0 S. Aureus , MRSA Assessment and Plan Assessment and Plan s/p popping pimple left face POD 2 s/p I&D left facial abscess hx of MRSA afebrile, wbc in normal range MRSA S. Aureus much improved from yesterday removed [place] to d/c to home form oms standpoint F/up 1 week [phone] Dr Laura warm compress left face- 20 min on /20 min off ID for d/c Hermes Vargas DMD Jun 01, 2016 10:35
[2016-06-01] MEDS ORDERED: PHARMACY ORDERED LAB XX ONE (22:45)
== END 2016-06-01 11:37 | disposition home or self-care (01) | DRG 872 ==
LOC: NEPC → NEDA 03:16 → NEPHCDU 05:09 → HOCB 05-28 18:04
PROVIDERS: ADMIT Hospitalist; ATTEND Hospitalist
PROC: 0H91XZX Drainage of Face Skin, External Approach, Diagnostic (ICD-10-PCS; principal; 2016-05-30)
DX: A41.9 Sepsis, unspecified organism (principal); D69.6 Thrombocytopenia, unspecified; L03.211 Cellulitis of face; B95.62 Methicillin resistant Staphylococcus aureus infection as the cause of diseases classified elsewhere; F10.10 Alcohol abuse, uncomplicated; F12.90 Cannabis use, unspecified, uncomplicated; F17.210 Nicotine dependence, cigarettes, uncomplicated; R73.03 Prediabetes; R79.89 Other specified abnormal findings of blood chemistry; Z86.14 Personal history of Methicillin resistant Staphylococcus aureus infection; B19.20 Unspecified viral hepatitis C without hepatic coma
CPT/HCPCS: 70487; 74177; 76937; 80048; 80053; 80074; 80202; 81001; 82565; 82948; 83036; 83605; 85025; 86403; 87015; 87040; 87070; 87102; 87116; 87147; 87186; 87205; 87206; 87641; 96361; 96365; 96375; J0295; J1100; J1170; J1815; J1885; J2060; J2405; J2543; J3370; J3411; J7030; J7040; J7050; Q9967

== ENCOUNTER 2016-07-04 19:08 | Emergency (ER) | payer OTHER ==
[~2016-07-04 19:08] MED LIST changes: +BACT800T5 PO; +BACTOIN EACH NARE; +HYDR-3583 PO; +LORA-392 PO; -MACR100C2 PO; +PANT20 PO; +VITA100T2 PO
[2016-07-04 21:05] VITALS: BP 134/65; PULSE 110; RESP 18; TEMP 97.8; O2SAT 95
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
== END 2016-07-05 01:21 | disposition home or self-care (01) ==
LOC: NEDAMB 19:08 → NEPB 07-05 01:21
DX: F10.129 Alcohol abuse with intoxication, unspecified (principal); Y90.6 Blood alcohol level of 120-199 mg/100 ml
CPT/HCPCS: 80307; 99284

== ENCOUNTER 2016-07-26 23:24 | Inpatient (IN) | payer SELFPAY ==
[~2016-07-26] VITALS: Ht 154.9 cm; Wt 76.0 kg
[2016-07-26 23:40] VITALS: BP 190/88; PULSE 97; RESP 24; TEMP 98.7; O2SAT 98
[2016-07-27] MEDS ORDERED: CLON1 PO (02:45)
[2016-07-27 03:26] LABS: AUTOMATED NEUTROPHIL # 5.4 TH/MM3 (1.8-7.7); BASOPHIL % 0.6 % (0.0-2.0); EOSINOPHIL % 0.3 % (0.0-4.0); HEMATOCRIT 46.1 % (35.0-46.0); LYMPH % 23.2 % (9.0-44.0); LYMPHOCYTE # 1.8 TH/MM3 (1.0-4.8); MEAN CELL VOLUME 96.9 FL (80.0-100.0); MEAN CORPUSCULAR HEMOGLOBIN 34.8 PG (27.0-34.0); MEAN CORPUSCULAR HGB CONC 35.9 % (32.0-36.0); MONO % 6.6 % (0.0-8.0); NEUT % 69.3 % (16.0-70.0); PLATELET COUNT 116 TH/MM3 (150-450); RED BLOOD COUNT 4.75 MIL/MM3 (4.00-5.30); RED CELL DISTRIBUTION WIDTH 14.1 % (11.6-17.2); WHITE BLOOD COUNT 7.7 TH/MM3 (4.0-11.0)
[2016-07-27] MEDS ORDERED: SODIUM CHLOR 0.9% 1000 ML INJ 1,000 ML IV ONE (03:30)
[2016-07-27] MEDS ORDERED: ONDANSETRON HCL 4 MG/2 ML VIAL IVP ONE (03:30)
[2016-07-27] MEDS ORDERED: HYDROmorphone HCL PF 1 MG/ML VIAL IVS ONE (03:30)
--- NOTE | 2016-07-27 03:32 | PD ---
HPI Chief Complaint: GI Complaint Time Seen by Provider: 02:43 Travel History International Travel<30 days: No Contact w/Intl Traveler<30days: No Traveled to known affect area: No History of Present Illness HPI 56-year-old female presents with vomiting and abdominal pain since about 3 this afternoon. She denies prior history of this. She denies other concurrent complaints. She notes that the pain is mainly lower. Quality pain is sharp. Severity is severe. She denies migration of the pain. PFSH Past Medical History Heart Rhythm Problems: No Cancer: No Cardiac Catheterization: No Cardiovascular Problems: No High Cholesterol: No Congestive Heart Failure: No Diabetes: No Diminished Hearing: No Endocrine: No Gastrointestinal Disorders: No Genitourinary: Yes Headaches: Yes Hypertension: No Immune Disorder: No Kidney Stones: Yes Musculoskeletal: Yes (MS) Neurologic: Yes Psychiatric: No Reproductive: No Respiratory: Yes Myocardial Infarction: No Seizures: Yes ?: Not Menopausal: Yes Tubal Ligation: Yes Past Surgical History Abdominal Surgery: Yes (RC, KIDNEY STONE REMOVAL) Section: Yes (X 2) Cholecystectomy: Yes Coronary Artery Bypass Graft: No Endocrine Surgery: Yes (TONSILLECTOMY) Gynecologic Surgery: Yes (2 ) Hysterectomy: No Tonsillectomy: Yes Other Surgery: Yes Social History Alcohol Use: Yes Tobacco Use: Yes (PPD) Substance Use: Yes (MJ occasionaly ) Allergies-Medications (Allergen,Severity, Reaction): Coded Allergies: Codeine (Verified Allergy, Severe, SWELLING HIVES, 07/27/16) *MDRO Multi-Drug Resistant Organism (Verified Adverse Reaction, Unknown, MRSA, 07/27/16) MRSA PCR (nares) POSITIVE - 05/28/16 MRSA (face abscess)-05/30/16 Reported Meds & Prescriptions Reported Meds & Active Scripts Active Reported Klonopin (Clonazepam) 1 Mg Tab 1 Mg PO BID Review of Systems Except as stated in HPI: all other systems reviewed are Neg Physical Exam Narrative GENERAL: Well-nourished, well-developed patient. Well-appearing SKIN: Warm and dry. HEAD: Normocephalic and atraumatic. EYES: No injection or drainage. ENT: No nasal drainage noted. NECK: Supple, trachea midline. CARDIOVASCULAR: Regular rate and rhythm RESPIRATORY: Breath sounds equal bilaterally. No accessory muscle use. GASTROINTESTINAL: Abdomen soft, diffusely tender most left upper quadrant, nondistended. No rebound NEUROLOGICAL: Awake and alert. Moves all extremities. Normal speech. Data Data Last Documented VS Vital Signs Date Time Temp Pulse Resp B/P Pulse Ox O2 Delivery O2 Flow Rate FiO2 07/27/16 03:48 96 19 145/86 98 Room Air 07/26/16 23:40 98.7 Orders Complete Blood Count With Diff (07/27/16 02:43) Comprehensive Metabolic Panel (07/27/16 02:43) Urinalysis - C+S If Indicated (07/27/16 02:43) Lipase (07/27/16 02:43) Ct Abd/Pel W Iv Contrast(Rout) (07/27/16 ) Iv Access Insert/Monitor (07/27/16 02:43) Ondansetron Inj (Zofran Inj) (07/27/16 03:30) Hydromorphone Pf Inj (Dilaudid Pf Inj) (07/27/16 03:30) Sodium Chlor 0.9% 1000 Ml Inj (Ns 1000 M (07/27/16 03:30) Iohexol 350 Inj (Omnipaque 350 Inj) (07/27/16 04:34) Urine Culture (07/27/16 03:45) Admit Order (Ed Use Only) (07/27/16 04:53) Labs Laboratory Tests Test 07/27/16 07/27/16 02:55 03:45 White Blood Count 7.7 TH/MM3 Red Blood Count 4.75 MIL/MM3 Hemoglobin 16.5 GM/DL Hematocrit 46.1 % Mean Corpuscular Volume 96.9 FL Mean Corpuscular Hemoglobin 34.8 PG Mean Corpuscular Hemoglobin 35.9 % Concent Red Cell Distribution Width 14.1 % Platelet Count 116 TH/MM3 Mean Platelet Volume 10.7 FL Neutrophils (%) (Auto) 69.3 % Lymphocytes (%) (Auto) 23.2 % Monocytes (%) (Auto) 6.6 % Eosinophils (%) (Auto) 0.3 % Basophils (%) (Auto) 0.6 % Neutrophils # (Auto) 5.4 TH/MM3 Lymphocytes # (Auto) 1.8 TH/MM3 Monocytes # (Auto) 0.5 TH/MM3 Eosinophils # (Auto) 0.0 TH/MM3 Basophils # (Auto) 0.0 TH/MM3 CBC Comment AUTO DIFF Differential Comment AUTO DIFF CONFIRMED Platelet Estimate LOW Platelet Morphology Comment NORMAL Sodium Level 135 MEQ/L Potassium Level 4.6 MEQ/L Chloride Level 104 MEQ/L Carbon Dioxide Level 24.5 MEQ/L Anion Gap 7 MEQ/L Blood Urea Nitrogen 8 MG/DL Creatinine 0.89 MG/DL Estimat Glomerular Filtration 66 ML/MIN Rate Random Glucose 141 MG/DL Calcium Level 9.8 MG/DL Total Bilirubin 0.9 MG/DL Aspartate Amino Transf 71 U/L (AST/SGOT) Alanine Aminotransferase 49 U/L (ALT/SGPT) Alkaline Phosphatase 121 U/L Total Protein 8.6 GM/DL Albumin 4.0 GM/DL Lipase 4272 U/L Urine Color YELLOW Urine Turbidity HAZY Urine pH 6.5 Urine Specific [place] 1.017 Urine Protein 30 mg/dL Urine Glucose (UA) NEG mg/dL Urine Ketones NEG mg/dL Urine Occult Blood SMALL Urine Nitrite NEG Urine Bilirubin NEG Urine Urobilinogen 2.0 MG/DL Urine Leukocyte Esterase MOD Urine RBC 6 /hpf Urine WBC 17 /hpf Urine Squamous Epithelial 1 /hpf Cells Urine Calcium Oxalate Crystals FEW /hpf Urine Bacteria OCC /hpf Urine Mucus FEW /lpf Microscopic Urinalysis Comment CULTURE INDICATED MDM Medical Decision Making Medical Screen Exam Complete: Yes Emergency Medical Condition: Yes Medical Record Reviewed: Yes (past history confirmed) Interpretation(s) CBC & BMP Diagram 07/27/16 02:55 Last 24 hours Impressions Abdomen/Pelvis CT 07/27/16 0000 Signed Impressions: Service Date/Time: Wednesday, July 27, 2016 04:31 - CONCLUSION: 1. Mild edema at the root of the mesentery of unclear etiology. The differential would include pancreatitis and mild duodenitis. Please correlate clinically and serologically. 2. Diffuse colonic diverticulosis, most [place] of the sigmoid colon. No clear acute inflammatory changes. 3. Mild fatty infiltration of the liver. 4. Nonobstructing stone and patchy cortical thinning/scarring again seen of the right kidney. 5. Nonacute skeletal findings as above. Wilson Thompson MD lipase significantly elevated Differential Diagnosis Pancreatitis, gastritis, stone, appendicitis Narrative Course Will check blood work, CT scan and dose with Zofran and Dilaudid and reevaluate ed workup with pancreatitis, will admit Physician Communication Physician Communication dr mcpherson to admit Diagnosis Primary Impression: Pancreatitis Qualified Code: K85.90 - Acute pancreatitis, unspecified complication status, unspecified pancreatitis type Admitting Information Admitting Physician Requests: Admit Halle Talbot MD Jul 27, 2016 03:32
[2016-07-27 03:37] LABS: HEMO FLAGS AUTO DIFF
[2016-07-27 03:48] VITALS: BP 145/86; PULSE 96; RESP 19; O2SAT 98
[2016-07-27 03:53] LABS: ALKALINE PHOSPHATASE 121 U/L (45-117); TOTAL BILIRUBIN ADULT 0.9 MG/DL (0.2-1.0)
[2016-07-27 04:06] LABS: ALT (GPT) 49 U/L (10-53); ANION GAP 7 MEQ/L (5-15); AST (GOT) 71 U/L (15-37); BICARBONATE 24.5 MEQ/L (21.0-32.0); BLOOD UREA NITROGEN 8 MG/DL (7-18); CHLORIDE 104 MEQ/L (98-107); GLOMERULAR FILTRATION RATE 66 ML/MIN (>89); SODIUM (NA) 135 MEQ/L (136-145)
[2016-07-27 04:07] LABS: POTASSIUM 4.6 MEQ/L (3.5-5.1)
[2016-07-27 04:27] LABS: PLATELET ESTIMATE SMEAR LOW (NORMAL); PLATELET MORPHOLOGY NORMAL (NORMAL); SCAN/DIFF AUTO DIFF CONFIRMED
[2016-07-27] MEDS ORDERED: IOHEXOL 350 MG/ML 10 ML VIAL (for RAD DIAG) IV ONE (04:34)
[2016-07-27 04:39] LABS: BACTERIA, URINE OCC /hpf; BLOOD, URINE SMALL (NEG); CALCIUM OXALATE CRYSTALS,URINE FEW /hpf; COMMENT (UR) CULTURE INDICATED; CULTURE IF INDICATED CULTURE INDICATED; GLUCOSE,URINE NEG (NEG); KETONE, URINE NEG (NEG); MUCUS URINE FEW /lpf (OCC); NITRITE,URINE NEG (NEG); PH, URINE 6.5 (5.0-8.5); SQUAMOUS EPITHELIAL CELL URINE 1 /hpf (0-5); URINE COLOR YELLOW (YELLW/STRAW)
--- NOTE | 2016-07-27 04:51 | RADRPT ---
EXAM DATE/TIME: 07/27/2016 04:31 [facility] COMPARISON: CT ABDOMEN & PELVIS W CONTRAST, May 26, 2016, 1:55. INDICATIONS : Abdominal pain. IV CONTRAST: 100 cc Omnipaque 350 (iohexol) IV ORAL CONTRAST: No oral contrast ingested. RADIATION DOSE: 9.96 CTDIvol (mGy) MEDICAL HISTORY : Multple sclerosis. Renal calculi. SURGICAL HISTORY : Cholecystectomy. Tubal ligation. section. ENCOUNTER: Initial ACUITY: 1 day PAIN SCALE: 8/10 LOCATION: abdomen TECHNIQUE: Volumetric scanning of the abdomen and pelvis was performed. Using automated exposure control and ad justment of the mA and/or kV according to patient size, radiation dose was kept as low as reasonably achievable to obtain optimal diagnostic quality images. FINDINGS: LOWER LUNGS: The visualized lower lungs are clear. LIVER: Homogeneous density without lesion, mildly fatty infiltrated.. There is no dilation of the biliary t ree. Previous cholecystectomy. SPLEEN: Normal size without lesion. PANCREAS: Within normal limits. KIDNEYS: No acute renal abnormality demonstrated. 6 mm nonobstructing stone seen lower pole of the right kidne y. There is patchy cortical thinning/scarring of the right kidney again noted. ADRENAL GLANDS: Within normal limits. VASCULAR: There is aortoiliac atherosclerosis. No aneurysm. BOWEL/MESENTERY: Mild edema seen at the root of the mesentery, nonspecific. Nothing organized or drainable. Diffuse co lonic diverticulosis again noted but I don't clearly see any acute inflammatory changes. The appendix is well-visualized, normal. ABDOMINAL WALL: Within normal limits. RETROPERITONEUM: There is no lymphadenopathy. BLADDER: No wall thickening or mass. REPRODUCTIVE: Within normal limits. INGUINAL: There is no lymphadenopathy or hernia. MUSCULOSKELETAL: Chronic sclerotic focus T9 vertebral body unchanged. Benign bone island left iliac bone also stable. There are degenerative changes of the lower lumbar spine, mainly the facet joints. Patient has partia l sacralization of L5 M. with associated degenerative changes, mostly on the left. CONCLUSION: 1. Mild edema at the root of the mesentery of unclear etiology. The differential would include pancre atitis and mild duodenitis. Please correlate clinically and serologically. 2. Diffuse colonic diverticulosis, most [place] of the sigmoid colon. No clear acute inflammatory sneha nges. 3. Mild fatty infiltration of the liver. 4. Nonobstructing stone and patchy cortical thinning/scarring again seen of the right kidney. 5. Nonacute skeletal findings as above. Wilson Thompson MD on July 27, 2016 at 4:43 Board Certified Radiologist. This report was verified electronically.
[2016-07-27] MEDS ORDERED: SODIUM CHLOR 0.9% 1000 ML INJ 1,000 ML IV SCH (04:57)
[2016-07-27] MEDS ORDERED: BISACODYL 10 MG SUPP RECTAL PRN (05:00)
[2016-07-27] MEDS ORDERED: SODIUM CHLORIDE 0.9% FLUSH 10 ML FLUSH IV FLUSH PRN (05:00)
[2016-07-27] MEDS ORDERED: ACETAMINOPHEN 325 MG TAB PO PRN (05:00)
[2016-07-27] MEDS ORDERED: LORazepam 2 MG/ML VIAL IV PUSH PRN ×4 (05:15)
[2016-07-27] MEDS ORDERED: LORazepam 1 MG TAB PO PRN (05:15)
[2016-07-27] MEDS ORDERED: HALOPERIDOL LACTATE 5 MG/ML AMP IM PRN (05:15)
[2016-07-27] MEDS ORDERED: LORazepam 2 MG TAB PO PRN (05:15)
[2016-07-27] MEDS ORDERED: FLUMAZENIL 0.5 MG/5 ML VIAL IV PUSH PRN (05:15)
--- NOTE | 2016-07-27 05:15 | HHI.HP ---
HPI Service [facility] Primary Care Physician No Primary Care Physician Admission Diagnosis pancreatitis Diagnoses: (1) Pancreatitis Diagnosis: Principal (2) UTI (urinary tract infection) Diagnosis: Principal (3) Alcohol abuse Diagnosis: Principal (4) Dehydration Diagnosis: Principal (5) Thrombocytopenia Diagnosis: Principal (6) Tobacco abuse Diagnosis: Principal Travel History International Travel<30 Days: No Contact w/Intl Traveler <30 Da: No Traveled to Known Affected Are: No History of Present Illness This is a 56-year-old female with a PMH of Alcohol Abuse and Tobacco Abuse who presented to the ER with complaints of abdominal pain, nausea and vomiting since yesterday afternoon. Denies diarrhea, fever, chills or sick contacts. Per his history of similar symptoms. On arrival, BP 190/88, HR 97, O2 sat 98% on RA, Afebrile. Platelets 116, previously 94 and 05/30/16. GFR 66. Lipase 4272. UA positive for UTI. CTAbd/Pelvis w/ mild edema at root of mesentery, possibly pancreatitis or mild duodenitis. Review of Systems Except as stated in HPI: all other systems reviewed are Neg ROS: 14 point review of systems otherwise negative. Past Family Social History Past Medical History PMH: Alcohol Abuse and Tobacco Abuse Past Surgical History PAST SURGICAL HISTORY: Cholecystectomy, , Tonsillectomy Allergies: Coded Allergies: Codeine (Verified Allergy, Severe, SWELLING HIVES, 07/27/16) *MDRO Multi-Drug Resistant Organism (Verified Adverse Reaction, Unknown, MRSA, 07/27/16) MRSA PCR (nares) POSITIVE - 05/28/16 MRSA (face abscess)-05/30/16 Family History PAST FAMILY HISTORY: Reviewed. No h/o DM or CAD Social History PAST SOCIAL HISTORY: Positive for Alcohol Abuse. Smokes 1ppd. Positive for Marijuana. Physical Exam Vital Signs Vital Signs Date Time Temp Pulse Resp B/P Pulse Ox O2 Delivery O2 Flow Rate FiO2 07/27/16 03:48 96 19 145/86 98 Room Air 07/26/16 23:40 98.7 97 24 190/88 98 Room Air Physical Exam PE: GENERAL: Middle-aged white female in no acute distress. HEENT: PERRLA, EOMI. No scleral icterus or conjunctival pallor. No lid lag or facial droop. CARDIOVASCULAR: Regular rate and rhythm. No obvious murmurs to auscultation. No chest tenderness to palpation. RESPIRATORY: No obvious rhonchi or wheezing. Clear to auscultation. Breath sounds equal bilaterally. GASTROINTESTINAL: Abdomen soft, epigastric tenderness palpation, nondistended. BS normal. MUSCULOSKELETAL: Extremities without clubbing, cyanosis, or edema. No obvious deformities. NEUROLOGICAL: Awake, alert and oriented x4. No focal neurologic deficits. Moving both upper and lower extremities spontaneously. Laboratory Laboratory Tests Test 07/27/16 07/27/16 02:55 03:45 White Blood Count 7.7 Red Blood Count 4.75 Hemoglobin 16.5 Hematocrit 46.1 Mean Corpuscular Volume 96.9 Mean Corpuscular Hemoglobin 34.8 Mean Corpuscular Hemoglobin 35.9 Concent Red Cell Distribution Width 14.1 Platelet Count 116 Mean Platelet Volume 10.7 Neutrophils (%) (Auto) 69.3 Lymphocytes (%) (Auto) 23.2 Monocytes (%) (Auto) 6.6 Eosinophils (%) (Auto) 0.3 Basophils (%) (Auto) 0.6 Neutrophils # (Auto) 5.4 Lymphocytes # (Auto) 1.8 Monocytes # (Auto) 0.5 Eosinophils # (Auto) 0.0 Basophils # (Auto) 0.0 CBC Comment AUTO DIFF Differential Comment AUTO DIFF CONFIRMED Platelet Estimate LOW Platelet Morphology Comment NORMAL Sodium Level 135 Potassium Level 4.6 Chloride Level 104 Carbon Dioxide Level 24.5 Anion Gap 7 Blood Urea Nitrogen 8 Creatinine 0.89 Estimat Glomerular Filtration 66 Rate Random Glucose 141 Calcium Level 9.8 Total Bilirubin 0.9 Aspartate Amino Transf 71 (AST/SGOT) Alanine Aminotransferase 49 (ALT/SGPT) Alkaline Phosphatase 121 Total Protein 8.6 Albumin 4.0 Lipase 4272 Urine Color YELLOW Urine Turbidity HAZY Urine pH 6.5 Urine Specific [place] 1.017 Urine Protein 30 Urine Glucose (UA) NEG Urine Ketones NEG Urine Occult Blood SMALL Urine Nitrite NEG Urine Bilirubin NEG Urine Urobilinogen 2.0 Urine Leukocyte Esterase MOD Urine RBC 6 Urine WBC 17 Urine Squamous Epithelial 1 Cells Urine Calcium Oxalate Crystals FEW Urine Bacteria OCC Urine Mucus FEW Microscopic Urinalysis Comment CULTURE INDICATED Date/Time Procedure Status Source Growth 07/27/16 03:45 Urine Culture Received Urine Clean Catch Pending Result Diagram: 07/27/1625407/27/16254 Assessment and Plan Problem List: (1) Pancreatitis ICD Code: K85.90 Status: Acute (2) UTI (urinary tract infection) ICD Code: N39.0 Status: Resolved (3) Dehydration ICD Code: E86.0 Status: Acute (4) Alcohol abuse ICD Code: F10.10 Status: Acute (5) Tobacco abuse ICD Code: Z72.0 Status: Acute (6) Thrombocytopenia ICD Code: D69.6 Status: Acute Assessment and Plan A/P: 1. Pancreatitis: Alcohol-Induced Pancreatitis. Acute onset of abdominal pain , nausea/vomiting, h/o alcohol abuse. Lipase 4272, CT Abd/Pelvis w/ mild edema at the root of mesentery, possibly pancreatitis or mild duodenitis images reviewed by me. Diet as tolerated, IVF, analgesics/antiemetics as needed, repeat Lipase, start IV Zosyn, IV Protonix. 2. UTI: U/a w/ UTI, continue w/ IV Abx as above. 3. Dehydration: GFR 66, previously 76 on 05/30/16. +UTI in addition to nausea/ vomiting, IVF for hydration, repeat labs in am. 4. Thrombocytopenia: Platelets 116, previously 94 on 05/30/16, secondary to chronic alcohol abuse. No active bleeding at this time. Will monitor. Repeat labs in am. 5. Alcohol Abuse: CIWA, MVT/Thiamine/Folate replacement, Seizure Precautions. 6. Tobacco Abuse: Pt counselled. NicoDerm prn if needed. 7. Social work for d/c planning as needed. 8. Case discussed w/ ER physician at length. Physician Certification 2 Midnight Certification Type: Admission for Inpatient Services Order for Inpatient Services The services are ordered in accordance with Medicare regulations or non- Medicare payer requirements, as applicable. In the case of services not specified as inpatient-only, they are appropriately provided as inpatient services in accordance with the 2-midnight benchmark. Estimated LOS (days): 2 days is the estimated time the patient will need to remain in the hospital, assuming treatment plan goals are met and no additional complications. Post-Hospital Plan: Home Lucrecia Chavez MD Jul 27, 2016 05:15
[2016-07-27] MEDS: PIPERACIL-TAZO 3.375 GM PREMIX 50 ML IV SCH ×4 (05:50→22:43)
[2016-07-27 06:23] VITALS: BP 149/79
[2016-07-27] MEDS: MORPHINE SULFATE 4 MG/ML INJ IV PRN ×5 (06:42→20:34)
[2016-07-27 08:06] VITALS: BP 137/73; PULSE 78; RESP 16; TEMP 98.4; O2SAT 95
[2016-07-27] MEDS: PANTOPRAZOLE SODIUM 40 MG VIAL IV PUSH SCH ×2 (08:31→20:34)
[2016-07-27] MEDS: ONDANSETRON HCL 4 MG/2 ML VIAL IVP PRN ×3 (08:31→22:49)
[2016-07-27] MEDS: clonazePAM 1 MG TAB PO SCH ×2 (08:32→20:34)
[2016-07-27] MEDS: SODIUM CHLORIDE 0.9% FLUSH 10 ML FLUSH IV FLUSH SCH ×2 (08:32→20:40)
[2016-07-27] MEDS: THIAMINE INJ 100 MG in SODIUM CHLORIDE 0.9% INJ 100 ML IV SCH (09:39)
[2016-07-27] MEDS: MULTIVITAMIN INJ 10 ML, FOLIC ACID INJ 1 MG in SODIUM CHLORID 0.9% 500 ML INJ 500 ML IV SCH (09:39)
[2016-07-27 12:16] VITALS: BP 106/56; PULSE 80; RESP 18; TEMP 97.9; O2SAT 95
[2016-07-27 13:58] VITALS: BP 126/71; PULSE 84; RESP 18; TEMP 98.1; O2SAT 98
[2016-07-27] MEDS: SODIUM CHLOR 0.9% 1000 ML INJ 1,000 ML IV SCH ×2 (14:12→20:42)
[2016-07-27] MEDS ORDERED: ACETAMINOPHEN/HYDROcodone 325 MG/7.5 MG TAB PO PRN (14:45)
[2016-07-27] MEDS ORDERED: DOCUSATE SODIUM 50 MG/SENNA 8.6 MG TAB PO PRN (14:45)
--- NOTE | 2016-07-27 14:48 | HHI.PR ---
Addendum to Inpatient Note Addendum Reason: Additional Documentation Additional Information Patient was evaluated. Patient continues to have a lot of pain. She rates it an 8 out of 10. Takes that her nausea and vomiting have resolved. She has been sipping on water. On exam patient is tender in the epigastric region with deep palpation. Some voluntary guarding during my exam. 1. Pancreatitis: Alcohol-Induced Pancreatitis. Acute onset of abdominal pain , nausea/vomiting, h/o alcohol abuse. Lipase 4272, CT Abd/Pelvis w/ mild edema at the root of mesentery, possibly pancreatitis or mild duodenitis images reviewed by me. Diet as tolerated, increase IV fluids to 150 mL's per hour normal saline , I have adjusted pain meds as needed/antiemetics as needed, repeat Lipase in the morning, continue IV Zosyn, IV Protonix. 2. UTI: U/a w/ UTI, continue w/ IV Abx as above. 3. Dehydration: GFR 66, previously 76 on 05/30/16. +UTI in addition to nausea/ vomiting, IVF for hydration, repeat labs in am. 4. Thrombocytopenia: Platelets 116, previously 94 on 05/30/16, secondary to chronic alcohol abuse. No active bleeding at this time. Will monitor. Repeat labs in am. 5. Alcohol Abuse: CIWA, MVT/Thiamine/Folate replacement, Seizure Precautions. 6. Tobacco Abuse: Pt counselled. NicoDerm prn if needed. Rose Marie Nassar MD Jul 27, 2016 14:48
[2016-07-27] MEDS: ACETAMINOPHEN/HYDROcodone 325 MG/10 MG TAB PO PRN (16:32)
[2016-07-27 20:00] VITALS: BP 137/79; PULSE 75; RESP 20; TEMP 97.5; O2SAT 98
[2016-07-28] VITALS: BP 109/68; PULSE 77; RESP 20; TEMP 98.2; O2SAT 95
[2016-07-28] MEDS: MORPHINE SULFATE 4 MG/ML INJ IV PRN ×7 (02:20→23:35)
[2016-07-28] MEDS: ACETAMINOPHEN/HYDROcodone 325 MG/10 MG TAB PO PRN ×2 (03:11→09:13)
[2016-07-28] MEDS: SODIUM CHLOR 0.9% 1000 ML INJ 1,000 ML IV SCH ×4 (03:15→23:15)
[2016-07-28] MEDS: ONDANSETRON HCL 4 MG/2 ML VIAL IVP PRN ×2 (05:50→19:27)
[2016-07-28] MEDS: PIPERACIL-TAZO 3.375 GM PREMIX 50 ML IV SCH ×4 (05:53→23:35)
[2016-07-28 05:58] LABS: ALT (GPT) 35 U/L (10-53); ANION GAP 5 MEQ/L (5-15); AST (GOT) 34 U/L (15-37); BICARBONATE 24.1 MEQ/L (21.0-32.0); BLOOD UREA NITROGEN 11 MG/DL (7-18); CHLORIDE 112 MEQ/L (98-107); GLOMERULAR FILTRATION RATE 68 ML/MIN (>89); POTASSIUM 3.6 MEQ/L (3.5-5.1); SODIUM (NA) 141 MEQ/L (136-145)
[2016-07-28 06:16] LABS: ALKALINE PHOSPHATASE 76 U/L (45-117); TOTAL BILIRUBIN ADULT 0.4 MG/DL (0.2-1.0)
[2016-07-28 06:27] LABS: AUTOMATED NEUTROPHIL # 2.6 TH/MM3 (1.8-7.7); BASOPHIL % 0.2 % (0.0-2.0); EOSINOPHIL # 0.1 TH/MM3 (0-0.4); HEMATOCRIT 38.5 % (35.0-46.0); HEMO FLAGS AUTO DIFF; LYMPH % 29.3 % (9.0-44.0); LYMPHOCYTE # 1.3 TH/MM3 (1.0-4.8); MEAN CELL VOLUME 100.3 FL (80.0-100.0); MEAN CORPUSCULAR HEMOGLOBIN 33.6 PG (27.0-34.0); MEAN CORPUSCULAR HGB CONC 33.5 % (32.0-36.0); MONO % 8.8 % (0.0-8.0); NEUT % 59.7 % (16.0-70.0); PLATELET COUNT 80 TH/MM3 (150-450); RED BLOOD COUNT 3.84 MIL/MM3 (4.00-5.30); WHITE BLOOD COUNT 4.3 TH/MM3 (4.0-11.0)
[2016-07-28 08:00] VITALS: BP_SYST 120; BP_SYST 143; BP_DIAS 74; BP_DIAS 81; PULSE 78; RESP 16; RESP 18; TEMP 97.9; O2SAT 97; O2SAT 98
[2016-07-28] MEDS: clonazePAM 1 MG TAB PO SCH ×2 (08:29→20:30)
[2016-07-28] MEDS: SODIUM CHLORIDE 0.9% FLUSH 10 ML FLUSH IV FLUSH SCH ×2 (08:29→21:00)
[2016-07-28] MEDS: THIAMINE INJ 100 MG in SODIUM CHLORIDE 0.9% INJ 100 ML IV SCH (08:29)
[2016-07-28] MEDS: PANTOPRAZOLE SODIUM 40 MG VIAL IV PUSH SCH ×2 (08:30→19:27)
[2016-07-28] MEDS: MULTIVITAMIN INJ 10 ML, FOLIC ACID INJ 1 MG in SODIUM CHLORID 0.9% 500 ML INJ 500 ML IV SCH (11:28)
[2016-07-28] MEDS ORDERED: HYDROmorphone HCL PF 1 MG/ML VIAL IV PUSH ONE (11:45)
[2016-07-28] MEDS ORDERED: oxyCODONE/ACETAMINOPHEN 7.5 MG/325 MG TAB PO PRN (11:45)
--- NOTE | 2016-07-28 11:47 | HHI.PR ---
Subjective Remarks Pt states that she is feeling a bit better today but still has pain especially when she eats. she would like some dilaudid for her pain instead. no nausea or vomiting today. no chest pain or SOB. Objective Vitals Vital Signs Date Time Temp Pulse Resp B/P Pulse Ox O2 Delivery O2 Flow Rate FiO2 07/28/16 08:00 97.9 78 16 120/74 98 07/28/16 00:00 98.2 77 20 109/68 95 07/27/16 20:00 97.5 75 20 137/79 98 07/27/16 13:58 98.1 84 18 126/71 98 07/27/16 12:16 97.9 80 18 106/56 95 I/O 07/27/16 07/27/16 07/27/16 07/28/16 07/28/16 07/28/16 07:00 15:00 23:00 07:00 15:00 23:00 Intake Total 300 ml 1219 ml 1667 ml Output Total 200 ml 400 ml Balance 300 ml 1019 ml 1267 ml Intake Oral 480 ml 480 ml IV Total 300 ml 739 ml 1187 ml Output Urine Total 200 ml 400 ml Result Diagram: 07/28/16 0447 07/28/16 0447 Imaging Last Impressions Abdomen/Pelvis CT 07/27/16 0000 Signed Impressions: Service Date/Time: Wednesday, July 27, 2016 04:31 - CONCLUSION: 1. Mild edema at the root of the mesentery of unclear etiology. The differential would include pancreatitis and mild duodenitis. Please correlate clinically and serologically. 2. Diffuse colonic diverticulosis, most [place] of the sigmoid colon. No clear acute inflammatory changes. 3. Mild fatty infiltration of the liver. 4. Nonobstructing stone and patchy cortical thinning/scarring again seen of the right kidney. 5. Nonacute skeletal findings as above. Wilson Thompson MD Objective Remarks GENERAL: Middle-aged white female in no acute distress. CARDIOVASCULAR: Regular rate and rhythm. No obvious murmurs to auscultation. No chest tenderness to palpation. RESPIRATORY: No obvious rhonchi or wheezing. Clear to auscultation. Breath sounds equal bilaterally. GASTROINTESTINAL: Abdomen soft, still w epigastric tenderness palpation, nondistended. BS normal. no guarding. MUSCULOSKELETAL: Extremities without edema. No obvious deformities. NEUROLOGICAL: Awake, alert and oriented x4. No focal neurologic deficits. Moving both upper and lower extremities spontaneously. A/P Problem List: (1) Pancreatitis ICD Code: K85.90 Status: Acute (2) UTI (urinary tract infection) ICD Code: N39.0 Status: Resolved (3) Dehydration ICD Code: E86.0 Status: Acute (4) Alcohol abuse ICD Code: F10.10 Status: Acute (5) Tobacco abuse ICD Code: Z72.0 Status: Acute (6) Thrombocytopenia ICD Code: D69.6 Status: Acute Assessment and Plan 1. Pancreatitis: Alcohol-Induced Pancreatitis. Acute onset of abdominal pain , nausea/vomiting, h/o alcohol abuse. Lipase 4272 now down to 617, CT Abd/ Pelvis w/ mild edema at the root of mesentery, possibly pancreatitis or mild duodenitis images reviewed by me. low fat Diet as tolerated, continue IV fluids to 150 mL's per hour normal saline , I have adjusted pain meds switching morco to percocets as needed/antiemetics as needed, give one time dose of IV dilaudid, repeat Lipase in the morning, continue IV Zosyn, IV Protonix. 2. UTI: U/a w/ UTI, continue w/ IV Abx as above. urine cx growing gram neg yusuf , f/u sensitivities. on IV abx 3. Dehydration: GFR 66-->68, previously 76 on 05/30/16. +UTI in addition to nausea/vomiting, IVF for hydration, repeat labs in am. 4. Thrombocytopenia: Platelets 116 down to 80 (monitor closely), previously 94 on 05/30/16, secondary to chronic alcohol abuse. No active bleeding at this time. Will monitor. Repeat labs in am. 5. Alcohol Abuse: CIWA, switch MVT/Thiamine/Folate to PO replacement, Seizure Precautions. Pt has been counseled extensively on quitting alcohol especially now that she has pancreatitis. I explained to her that alcohol is most likely the cause that she can have another episode of pancreatitis if she continues to drink. 6. Tobacco Abuse: Pt counselled. NicoDerm prn if needed. Discharge Planning d/c when pain better controlled and tolerating a low fat diet. I have encouraged pt to ambulate down the halls Problem Qualifiers (1) Pancreatitis: Qualified Code: K85.90 - Acute pancreatitis, unspecified complication status, unspecified pancreatitis type Rose Marie Nassar MD Jul 28, 2016 11:47
[2016-07-28 11:48] LABS: PLATELET ESTIMATE SMEAR LOW (NORMAL); PLATELET MORPHOLOGY NORMAL (NORMAL); SCAN/DIFF AUTO DIFF CONFIRMED
[2016-07-28 12:00] VITALS: BP 122/78; PULSE 76; RESP 17; TEMP 97.3; O2SAT 99
[2016-07-28] MEDS: oxyCODONE/ACETAMINOPHEN 10 MG/325 MG TAB PO PRN ×2 (15:11→19:24)
[2016-07-28 20:00] VITALS: BP 162/85; PULSE 74; RESP 20; TEMP 97.6; O2SAT 97
[2016-07-29] VITALS: BP 154/79; PULSE 80; RESP 20; TEMP 98; O2SAT 98
[2016-07-29] MEDS: oxyCODONE/ACETAMINOPHEN 10 MG/325 MG TAB PO PRN ×5 (00:16→15:47)
[2016-07-29] MEDS: MORPHINE SULFATE 4 MG/ML INJ IV PRN ×4 (02:40→13:24)
[2016-07-29] MEDS: SODIUM CHLOR 0.9% 1000 ML INJ 1,000 ML IV SCH ×2 (03:57→12:35)
[2016-07-29] MEDS: PIPERACIL-TAZO 3.375 GM PREMIX 50 ML IV SCH ×2 (03:57→11:18)
[2016-07-29 05:12] LABS: AUTOMATED NEUTROPHIL # 1.8 TH/MM3 (1.8-7.7); BASOPHIL % 0.3 % (0.0-2.0); EOSINOPHIL # 0.1 TH/MM3 (0-0.4); EOSINOPHIL % 2.3 % (0.0-4.0); HEMATOCRIT 35.4 % (35.0-46.0); LYMPH % 31.4 % (9.0-44.0); MEAN CELL VOLUME 99.6 FL (80.0-100.0); MEAN CORPUSCULAR HEMOGLOBIN 34.5 PG (27.0-34.0); MEAN CORPUSCULAR HGB CONC 34.6 % (32.0-36.0); MONO % 8.4 % (0.0-8.0); NEUT % 57.6 % (16.0-70.0); PLATELET COUNT 68 TH/MM3 (150-450); RED BLOOD COUNT 3.55 MIL/MM3 (4.00-5.30); RED CELL DISTRIBUTION WIDTH 13.9 % (11.6-17.2); WHITE BLOOD COUNT 3.2 TH/MM3 (4.0-11.0)
[2016-07-29 05:13] LABS: HEMO FLAGS AUTO DIFF
[2016-07-29 05:26] LABS: BICARBONATE 23.1 MEQ/L (21.0-32.0); POTASSIUM 3.4 MEQ/L (3.5-5.1)
[2016-07-29 07:44] LABS: PLATELET ESTIMATE SMEAR LOW (NORMAL); PLATELET MORPHOLOGY NORMAL (NORMAL); SCAN/DIFF AUTO DIFF CONFIRMED
[2016-07-29 08:00] VITALS: BP 179/98; PULSE 74; RESP 18; TEMP 96.2; O2SAT 97
[2016-07-29] MEDS: ONDANSETRON HCL 4 MG/2 ML VIAL IVP PRN (08:09)
[2016-07-29] MEDS: PANTOPRAZOLE SODIUM 40 MG VIAL IV PUSH SCH (08:09)
[2016-07-29] MEDS: SODIUM CHLORIDE 0.9% FLUSH 10 ML FLUSH IV FLUSH SCH (08:09)
[2016-07-29] MEDS: clonazePAM 1 MG TAB PO SCH (08:09)
[2016-07-29] MEDS ORDERED: THIAMINE HCL 100 MG TAB PO SCH (09:00)
[2016-07-29] MEDS ORDERED: MULTIVITAMIN TAB PO SCH (09:00)
[2016-07-29 12:00] VITALS: BP 151/83; PULSE 70; RESP 17; TEMP 97.3; O2SAT 98
[2016-07-29 13:24] VITALS: RESP 20
[2016-07-29] MEDS ORDERED: POTASSIUM CHLORIDE 20 MEQ CONTROLLED RELEASE TAB PO ONE (15:30)
[2016-07-29] MEDS ORDERED: PERI8.6T PO (15:53)
[2016-07-29] MEDS ORDERED: OXYC1TAB36 PO (15:53)
[2016-07-29] MEDS ORDERED: MACR100C2 PO (15:55)
--- NOTE | 2016-07-29 15:58 | HHI.DS ---
Discharge Summary Admission Date Jul 27, 2016 at 04:55 Discharge Date: July 29, 2016 Admitting Diagnosis pancreatitis (1) Pancreatitis ICD Code: K85.90 Diagnosis: Principal (2) UTI (urinary tract infection) ICD Code: N39.0 Diagnosis: Principal (3) Dehydration ICD Code: E86.0 Diagnosis: Principal (4) Alcohol abuse ICD Code: F10.10 Diagnosis: Principal (5) Tobacco abuse ICD Code: Z72.0 Diagnosis: Principal (6) Thrombocytopenia ICD Code: D69.6 Diagnosis: Principal Procedures none Brief History - From Admission This is a 56-year-old female with a PMH of Alcohol Abuse and Tobacco Abuse who presented to the ER with complaints of abdominal pain, nausea and vomiting since yesterday afternoon. Denies diarrhea, fever, chills or sick contacts. Per his history of similar symptoms. On arrival, BP 190/88, HR 97, O2 sat 98% on RA, Afebrile. Platelets 116, previously 94 and 05/30/16. GFR 66. Lipase 4272. UA positive for UTI. CTAbd/Pelvis w/ mild edema at root of mesentery, possibly pancreatitis or mild duodenitis. CBC/BMP: 07/29/16 0415 07/29/16 0415 Significant Findings Laboratory Tests Test 07/27/16 07/27/16 07/28/16 07/29/16 02:55 03:45 04:47 04:15 Sodium Level 135 MEQ/L (136-145) Estimat Glomerular Filtration 66 ML/MIN (>89) 68 ML/MIN (>89) 66 ML/MIN (>89) Rate Random Glucose 141 MG/DL 149 MG/DL (74-106) (74-106) Aspartate Amino Transf 71 U/L (15-37) (AST/SGOT) Alkaline Phosphatase 121 U/L (45-117) Total Protein 8.6 GM/DL 5.8 GM/DL (6.4-8.2) (6.4-8.2) Lipase 4272 U/L 617 U/L (73-393) (73-393) Hemoglobin 16.5 GM/DL (11.6-15.3) Hematocrit 46.1 % (35.0-46.0) Mean Corpuscular Hemoglobin 34.8 PG 34.5 PG (27.0-34.0) (27.0-34.0) Platelet Count 116 TH/MM3 80 TH/MM3 68 TH/MM3 (150-450) (150-450) (150-450) Platelet Estimate LOW (NORMAL) LOW (NORMAL) LOW (NORMAL) Urine Turbidity HAZY (CLEAR) Urine Protein 30 mg/dL (NEG-TRACE) Urine Occult Blood SMALL (NEG) Urine Leukocyte Esterase MOD (NEG) Urine RBC 6 /hpf (0-3) Urine WBC 17 /hpf (0-5) Urine Calcium Oxalate Crystals FEW /hpf (NONE) Urine Bacteria OCC /hpf (NONE) Urine Mucus FEW /lpf (OCC) Red Blood Count 3.84 MIL/MM3 3.55 MIL/MM3 (4.00-5.30) (4.00-5.30) Mean Corpuscular Volume 100.3 FL (80.0-100.0) Monocytes (%) (Auto) 8.8 % (0.0-8.0) 8.4 % (0.0-8.0) Chloride Level 112 MEQ/L 110 MEQ/L (98-107) (98-107) Calcium Level 8.2 MG/DL 8.2 MG/DL (8.5-10.1) (8.5-10.1) Albumin 2.6 GM/DL (3.4-5.0) White Blood Count 3.2 TH/MM3 (4.0-11.0) Potassium Level 3.4 MEQ/L (3.5-5.1) Imaging Last Impressions Abdomen/Pelvis CT 07/27/16 0000 Signed Impressions: Service Date/Time: Wednesday, July 27, 2016 04:31 - CONCLUSION: 1. Mild edema at the root of the mesentery of unclear etiology. The differential would include pancreatitis and mild duodenitis. Please correlate clinically and serologically. 2. Diffuse colonic diverticulosis, most [place] of the sigmoid colon. No clear acute inflammatory changes. 3. Mild fatty infiltration of the liver. 4. Nonobstructing stone and patchy cortical thinning/scarring again seen of the right kidney. 5. Nonacute skeletal findings as above. Wilson Thompson MD PE at Discharge GENERAL: Middle-aged white female in no acute distress. CARDIOVASCULAR: Regular rate and rhythm. No obvious murmurs to auscultation. No chest tenderness to palpation. RESPIRATORY: No obvious rhonchi or wheezing. Clear to auscultation. Breath sounds equal bilaterally. GASTROINTESTINAL: Abdomen soft, minimal discomfort on palpation, nondistended. BS normal. no guarding. MUSCULOSKELETAL: Extremities without edema. No obvious deformities. NEUROLOGICAL: Awake, alert and oriented x4. No focal neurologic deficits. Moving both upper and lower extremities spontaneously. Pt update on day of discharge Pt feeling much better, has some pain on and off but controlled on current regimen. denies any CP/SOB/N/V Hospital Course 1. Pancreatitis: Alcohol-Induced Pancreatitis. Acute onset of abdominal pain , nausea/vomiting, h/o alcohol abuse. Lipase 4272 now down to 90's, CT Abd/ Pelvis w/ mild edema at the root of mesentery, possibly pancreatitis or mild duodenitis images reviewed by me. low fat Diet as tolerated, HLIV ,scrip for percocets given prn, Pt has been counseled on multiple occasions to quit drinking. She voices her understanding 2. UTI: U/a w/ UTI, continue w/ IV Abx as above. urine cx growing E. Coli sensitive to macrobid. script in chart. Pt Condition on Discharge: Stable Discharge Disposition: Discharge Home Discharge Time: > 30 minutes Discharge Instructions DIET: Follow Instructions for: Heart Healthy Diet Additional Diet Instructions: low fat diet Activities you can perform: Regular-No Restrictions Follow up Referrals: Physician - 1 Week New Medications: Nitrofurantoin Monohydrate Macrocrystals (Macrobid) 100 Mg Cap 100 MG PO BID Infection Days 3 Ref 0 CAP Sennosides-Docusate Sodium (Renee-Colace) 8.6-50 Mg Tab 1 TAB PO BID PRN Constipation #60 Ref 0 TAB Oxycodone-Acetaminophen (Oxycodone-Acetaminophen) 10-325 mg Tab 1 TAB PO Q4-6H PRN PAIN SCALE 7 TO 10 #20 TAB Continued Medications: Clonazepam (Klonopin) 1 Mg Tab 1 MG PO BID #60 Ref 0 TAB Rose Marie Nassar MD July 29, 2016 15:58
[2016-07-30] MEDS ORDERED: THIAMINE HCL 100 MG TAB PO SCH (09:00)
== END 2016-07-29 16:47 | disposition home or self-care (01) | DRG 439 ==
LOC: NEPE 23:24 → NEDA 07-27 04:55 → NEPGCP 07-27 06:26 → N07A 07-27 13:08
PROVIDERS: ADMIT Hospitalist; ATTEND Hospitalist
DX: K85.20 Alcohol induced acute pancreatitis without necrosis or infection (principal); N39.0 Urinary tract infection, site not specified; D69.6 Thrombocytopenia, unspecified; B96.20 Unspecified Escherichia coli [E. coli] as the cause of diseases classified elsewhere; E86.0 Dehydration; F10.10 Alcohol abuse, uncomplicated; F17.210 Nicotine dependence, cigarettes, uncomplicated
CPT/HCPCS: 74177; 80048; 80053; 81001; 82948; 83690; 85025; 87077; 87086; 87186; 94150; 96374; 96375; C9113; J1170; J2270; J2405; J2543; J3411; J7030; J7040; Q9967

== ENCOUNTER 2016-12-20 19:02 | Emergency (ER) | payer SELFPAY ==
[~2016-12-20] VITALS: Ht 154.9 cm; Wt 72.0 kg
[~2016-12-20 19:02] MED LIST changes: -BACT800T5 PO; -BACTOIN EACH NARE; +CLON1 PO; -HYDR-3583 PO; -LORA-392 PO; +MACR100C2 PO; +OXYC1TAB36 PO; -PANT20 PO; +PERI8.6T PO; -VITA100T2 PO
[2016-12-20 19:04] VITALS: BP 183/78; PULSE 80; RESP 15; TEMP 98.8; O2SAT 99
[2016-12-20] MEDS ORDERED: DALBAVANCIN INJ 1,500 MG in DEXTROSE 5% IN WATE 500 ML INJ 500 ML IV STA ×2 (20:20)
[2016-12-20] MEDS ORDERED: LIDOCAINE HCL 1% 50 ML VIAL INFIL ONE (20:30)
[2016-12-20] MEDS ORDERED: ACETAMINOPHEN/HYDROcodone 325 MG/5 MG TAB PO ONE (20:30)
[2016-12-20] MEDS ORDERED: ASP: Only reason for admit - IV antibiotics OTHER ONE (20:30)
[2016-12-20] MEDS ORDERED: KETOROLAC TROMETHAMINE 30 MG/ML (IVP) VIAL IV PUSH ONE (20:30)
[2016-12-20] MEDS ORDERED: SODIUM CHLORID 0.9% 500 ML INJ 500 ML IV ONE (20:30)
[2016-12-20] MEDS ORDERED: MISCELLANEOUS PHARMACY INFORMATION XX ONE (20:30)
[2016-12-20] MEDS ORDERED: ASP: Location of Dalbavancin administration OTHER ONE (20:30)
[2016-12-20] MEDS ORDERED: ASP: Does not meet inpatient admission criteria OTHER ONE (20:30)
[2016-12-20] MEDS ORDERED: ASP: No known hypersensitivity to Vanco, Telavancin, Dalbavancin OTHER ONE (20:30)
--- NOTE | 2016-12-20 20:32 | PD ---
HPI Chief Complaint: Skin Problem Time Seen by Provider: 20:20 Travel History International Travel<30 days: No Contact w/Intl Traveler<30days: No Traveled to known affect area: No History of Present Illness HPI 56 YO F with history of MRSA, EtOH abuse presents to the ED for evaluation of right hand redness, pain and swelling x 3 days. Patient states that she thinks she was bitten by something, but doesn't recall an injury. She endorses chills and mild nausea. She endorses pain with attempted ROM. She denies numbness, tingling, weakness of the extremity. She's been treating at home with ibuprofen. PFSH Past Medical History Heart Rhythm Problems: No Cancer: No Cardiac Catheterization: No Cardiovascular Problems: No High Cholesterol: No Congestive Heart Failure: No COPD: Yes Diabetes: No Diminished Hearing: No Endocrine: No Gastrointestinal Disorders: Yes (pancreatitis) Genitourinary: Yes Headaches: Yes Hypertension: No Immune Disorder: No Kidney Stones: Yes Musculoskeletal: Yes (MS) Neurologic: Yes Psychiatric: No Reproductive: No Respiratory: Yes Myocardial Infarction: No Seizures: Yes ?: Not Menopausal: Yes Tubal Ligation: Yes Past Surgical History Abdominal Surgery: Yes (RC, KIDNEY STONE REMOVAL) Section: Yes (X 2) Cholecystectomy: Yes Coronary Artery Bypass Graft: No Endocrine Surgery: Yes (TONSILLECTOMY) Gynecologic Surgery: Yes (2 ) Hysterectomy: No Tonsillectomy: Yes Other Surgery: Yes Social History Alcohol Use: Yes (RARE) Tobacco Use: Yes (PPD) Substance Use: Yes (MJ occasionaly ) Allergies-Medications (Allergen,Severity, Reaction): Coded Allergies: codeine (Unverified Allergy, Severe, SWELLING HIVES, 12/20/16) *MDRO Multi-Drug Resistant Organism (Verified Adverse Reaction, Unknown, MRSA, 12/20/16) MRSA PCR (nares) POSITIVE - 05/28/16 MRSA (face abscess)-05/30/16 Reported Meds & Prescriptions Reported Meds & Active Scripts Active Tramadol (Tramadol HCl) 50 Mg Tab 50 Mg PO Q6H PRN Reported Klonopin (Clonazepam) 1 Mg Tab 1 Mg PO BID Review of Systems Except as stated in HPI: all other systems reviewed are Neg Physical Exam Narrative GENERAL: Well-nourished, well-developed white female no acute distress. SKIN: Focused skin assessment warm/dry. SKIN: There is an indurated area in the dorsal aspect of the right hand which measures about 2 cm in diameter. It is fluctuant but there is no pointing or drainage. No crepitus. There is a zone of inflammation around it but no lymphangitis. HEAD: Normocephalic. EYES: No scleral icterus. No injection or drainage. NECK: Supple, trachea midline. No JVD or lymphadenopathy. CARDIOVASCULAR: Regular rate and rhythm without murmurs, gallops, or rubs. RESPIRATORY: Breath sounds equal bilaterally. No accessory muscle use. GASTROINTESTINAL: Abdomen soft, non-tender, nondistended. MUSCULOSKELETAL: No cyanosis, or edema. FOCUSED RIGHT UPPER EXTREMITY EXAM: 2+ radial pulse. Edema and erythema surrounding a abscess on dorsum of the right hand. Strong finger to thumb opposition on each digit. No difficulties with flexion or extension. Compartments are soft. Intact to light touch distally on each digit. Refill less than 2 seconds on each digit distally. BACK: Nontender without obvious deformity. No CVA tenderness. Data Data Last Documented VS Vital Signs Date Time Temp Pulse Resp B/P (MAP) Pulse Ox O2 Delivery O2 Flow Rate FiO2 12/20/16 19:04 98.8 80 15 183/78 (113) 99 Room Air Orders Orders Complete Blood Count With Diff (12/20/16 20:20) Comprehensive Metabolic Panel (12/20/16 20:20) Blood Culture (12/20/16 20:20) Case Management Consult (12/20/16 ) Asp:No Reaction To [place]/Vanc (Asp Crit (12/20/16 20:30) Asp: Does Not Meet Inpt Admit (Asp Crit: (12/20/16 20:30) Asp: Iv Antibiotics Admit Only (Asp Crit (12/20/16 20:30) Asp: Location Of [facility] Admin (Asp Crit: (12/20/16 20:30) [facility] [place] [facility] ([facility] [place] [facility] (12/20/16 20:30) Dalbavancin Inj (Dalvance Inj) (12/20/16 20:20) Wound Culture And Gram Stain (12/20/16 20:20) Lidocaine 1% Inj (50 Ml) (Xylocaine 1% I (12/20/16 20:30) Sodium Chlorid 0.9% 500 Ml Inj (Ns 500 M (12/20/16 20:30) Ketorolac Inj (Toradol Inj) (12/20/16 20:30) Acetamin-Hydrocod 325-5 Mg (Mims 5-325 (12/20/16 20:30) Ondansetron Odt (Zofran Odt) (12/20/16 21:30) MDM Medical Decision Making Medical Screen Exam Complete: Yes Emergency Medical Condition: Yes Differential Diagnosis Abscess versus cellulitis versus compartment syndrome versus tenosynovitis versus other Narrative Course 56 YO F with history of MRSA, EtOH abuse presents to the ED for evaluation of right hand redness, pain and swelling x 3 days. Patient states that she thinks she was bitten by something.. She endorses chills, nausea, pain with attempted ROM. She denies numbness, tingling, weakness of the extremity. Patient is afebrile, hypertensive on presentation. Physical exam reveals an abscess in the dorsal aspect of the right hand. No evidence of tenosynovitis or compartment syndrome. No crepitus noted. The patient states that she does not would be admitted to the hospital. I think she'll be a good candidate for Dalvance. CBC, CMP, blood cultures ordered. Patient was administered a half liter of fluids. I&D of the abscess was formed. Please see my for seizure note for details. Wound cultures were obtained. Dalvance was administered. The patient was prescribed a short course of tramadol for pain greater than 6. She is instructed to return to the ED in 2 days for packing removal and wound evaluation. She indicated understanding of the instructions. She is stable and discharged home. Procedures Procedure Narrative INCISION AND DRAINAGE OF ABSCESS: The area was prepped and was sterilely draped. A subcutaneous wheal of 1 % Xylocaine with a total number 2 mL was used to anesthetize the area properly. A number 11 scalpel was used to make a 1 -cm incision across the area of the abscess. The abscess was drained, complex loculations were broken down, and irrigated with normal saline. Cultures were obtained. Quarter inch iodoform packing was placed in the wound. Sterile dressing applied. Patient advised to return to the ED for packing removal and wound recheck in 2 days. Diagnosis Primary Impression: Abscess of right hand excluding fingers and thumb Additional Impression: Cellulitis of right hand Referrals: Primary Care Physician Patient Instructions: Abscess Incision and Drainage (DC), General Instructions Additional Instructions: Rest, hydrate. Keep the dressing clean and dry. Keep the dressing that was applied today on until you return in 48 hours for wound recheck. Take tramadol as prescribed, as needed for pain greater than 6. For pain less than 6 on the pain scale you can take 600 mg ibuprofen every 8 hours. Return to the ED in 48 hours for wound recheck. Return to the ED for any urgent or emergent medical condition. Med/Other Pt SpecificInfo: Prescription(s) given Scripts Tramadol (Tramadol) 50 Mg Tab 50 MG PO Q6H Y for PAIN GREATER THAN 6, #7 TAB 0 Refills Prov: Jennifer Perez MD 12/20/16 Disposition: 01 DISCHARGE HOME Condition: Stable Sophia Joseph Dec 20, 2016 20:32
[2016-12-20] MEDS ORDERED: ONDANSETRON ODT 4 MG TAB PO ONE (21:30)
[2016-12-20] MEDS ORDERED: TRAM50TA PO (21:43)
[2016-12-20 21:51] VITALS: BP 167/80; PULSE 76; RESP 18; O2SAT 98
[2016-12-20 22:21] LABS: AUTOMATED NEUTROPHIL # 3.8 TH/MM3 (1.8-7.7); BASOPHIL % 0.2 % (0.0-2.0); EOSINOPHIL # 0.1 TH/MM3 (0-0.4); EOSINOPHIL % 1.4 % (0.0-4.0); HEMATOCRIT 46.7 % (35.0-46.0); HEMO FLAGS DIFF FINAL; LYMPH % 24.6 % (9.0-44.0); LYMPHOCYTE # 1.4 TH/MM3 (1.0-4.8); MEAN CELL VOLUME 96.2 FL (80.0-100.0); MEAN CORPUSCULAR HEMOGLOBIN 32.9 PG (27.0-34.0); MEAN CORPUSCULAR HGB CONC 34.2 % (32.0-36.0); MONO % 6.9 % (0.0-8.0); NEUT % 66.9 % (16.0-70.0); PLATELET COUNT 106 TH/MM3 (150-450); RED BLOOD COUNT 4.85 MIL/MM3 (4.00-5.30); RED CELL DISTRIBUTION WIDTH 12.8 % (11.6-17.2); WHITE BLOOD COUNT 5.6 TH/MM3 (4.0-11.0)
[2016-12-20 22:43] LABS: ANION GAP 7 MEQ/L (5-15); AST (GOT) 27 U/L (15-37); BICARBONATE 29.1 MEQ/L (21.0-32.0); BLOOD UREA NITROGEN 15 MG/DL (7-18); CHLORIDE 100 MEQ/L (98-107); GLOMERULAR FILTRATION RATE 69 ML/MIN (>89); SODIUM (NA) 136 MEQ/L (136-145)
[2016-12-20 22:44] LABS: ALKALINE PHOSPHATASE 111 U/L (45-117); ALT (GPT) 33 U/L (10-53); TOTAL BILIRUBIN ADULT 0.5 MG/DL (0.2-1.0)
== END 2016-12-20 21:52 | disposition home or self-care (01) ==
LOC: NEPC 19:02
DX: L02.511 Cutaneous abscess of right hand (principal); L03.113 Cellulitis of right upper limb; B95.62 Methicillin resistant Staphylococcus aureus infection as the cause of diseases classified elsewhere; J44.9 Chronic obstructive pulmonary disease, unspecified; F17.200 Nicotine dependence, unspecified, uncomplicated
CPT/HCPCS: 10061; 80053; 85025; 86403; 87040; 87070; 87186; 96365; 96375; 99284; J0875; J1885; J7040; J7060; 87205

== ENCOUNTER 2017-04-02 21:22 | Emergency (ER) | payer SELFPAY ==
[~2017-04-02] VITALS: Ht 156.2 cm; Wt 69.1 kg
[~2017-04-02 21:22] MED LIST changes: -MACR100C2 PO; -OXYC1TAB36 PO; -PERI8.6T PO; +TRAM50TA PO
[2017-04-02 21:24] VITALS: BP 138/72; PULSE 87; RESP 16; TEMP 97.6; O2SAT 97
--- NOTE | 2017-04-02 22:23 | PD ---
HPI Chief Complaint: Skin Problem Time Seen by Provider: 22:18 Travel History International Travel<30 days: No Contact w/Intl Traveler<30days: No Traveled to known affect area: No History of Present Illness HPI Patient's 57-year-old female presents emergency Department with redness and swelling to the right ankle for the past few days. She states started with a small scratch and then gradually worsening having swelling. Denies any fevers. Has a history of IV drug abuse on her chart, states the pain is 10 out of 10 but appears quite comfortable. Denies any drainage from the wound denies any injury that she can recall. States she has been able to walk. PFSH Past Medical History Heart Rhythm Problems: No Cancer: No Cardiac Catheterization: No Cardiovascular Problems: No High Cholesterol: No Congestive Heart Failure: No COPD: Yes Diabetes: No Diminished Hearing: No Endocrine: No Gastrointestinal Disorders: Yes (pancreatitis) Genitourinary: Yes Headaches: Yes Hypertension: No Immune Disorder: No Kidney Stones: Yes Musculoskeletal: Yes (MS) Neurologic: Yes Psychiatric: No Reproductive: No Respiratory: Yes Myocardial Infarction: No Seizures: Yes Menopausal: Yes Tubal Ligation: Yes Past Surgical History Abdominal Surgery: Yes (RC, KIDNEY STONE REMOVAL) Section: Yes (X 2) Cholecystectomy: Yes Coronary Artery Bypass Graft: No Endocrine Surgery: Yes (TONSILLECTOMY) Gynecologic Surgery: Yes (2 ) Hysterectomy: No Tonsillectomy: Yes Other Surgery: Yes Social History Alcohol Use: Yes (RARE) Tobacco Use: Yes (PPD) Substance Use: Yes (MJ occasionaly ) Allergies-Medications (Allergen,Severity, Reaction): Coded Allergies: codeine (Unverified Allergy, Severe, SWELLING HIVES, 12/20/16) *MDRO Multi-Drug Resistant Organism (Verified Adverse Reaction, Unknown, MRSA, 12/20/16) MRSA PCR (nares) POSITIVE - 05/28/16 MRSA (face abscess)-05/30/16 Reported Meds & Prescriptions Reported Meds & Active Scripts Active Bactrim DS (Sulfamethoxazole-Trimethoprim) 800-160 Mg Tab 1 Tab PO BID Reported Klonopin (Clonazepam) 1 Mg Tab 1 Mg PO BID Review of Systems Except as stated in HPI: all other systems reviewed are Neg Physical Exam Narrative GENERAL: Well-nourished, well-developed patient, in no obvious distress. SKIN: There is a grape-sized abscess on the medial malleolus of the right ankle. There is full nontender range of motion of the ankle, no joint effusion , there is no warmth to the joint itself over the lateral malleolus. Minimal surrounding cellulitis probably silver dollar size. No lymph angina no lymphadenitis. HEAD: Normocephalic. EYES: No scleral icterus. No injection or drainage. NECK: Supple, trachea midline. No JVD or lymphadenopathy. CARDIOVASCULAR: Regular rate and rhythm without murmurs, gallops, or rubs. RESPIRATORY: Breath sounds equal bilaterally. No accessory muscle use. GASTROINTESTINAL: Abdomen soft, non-tender, nondistended. MUSCULOSKELETAL: No cyanosis, or edema. BACK: Nontender without obvious deformity. No CVA tenderness. Data Data Last Documented VS Vital Signs Date Time Temp Pulse Resp B/P (MAP) Pulse Ox O2 Delivery O2 Flow Rate FiO2 04/02/17 23:33 04/02/17 21:24 97.6 87 16 97 Orders Orders Ibuprofen (Motrin) (04/02/17 22:45) Sulfamet-Trimeth Ds 800-160 Mg (Bactrim (04/02/17 22:45) Ed Discharge Order (04/02/17 23:20) MDM Medical Decision Making Medical Screen Exam Complete: Yes Emergency Medical Condition: Yes Differential Diagnosis Cellulitis, abscess, sepsis unlikely, history of IV drug abuse, history of MRSA cellulitis. Narrative Course Patient roomed in emergency department, appears quite comfortable, vital signs within normal limits. She is sitting upright in a stretcher in no obvious distress. She was given ibuprofen as she requests something for pain prior to incision and drainage. After risks benefits competitions and alternatives were discussed of incision and drainage of her abscess she agreed to the procedure and patient tolerated it quite well. Patient did state nursing that she was still having some pain but appears quite comfortable in no distress. I do not see any indication for narcotic pain medications in this patient who appears comfortable and is certainly not having any life-threatening pain. She is stable for discharge, given Bactrim in the emergency department. Bactrim prescription was given to her. She ambulated from the emergency Department with an even narrow based gait in no obvious distress. Procedures Procedure Narrative INCISION AND DRAINAGE OF ABSCESS: The area was prepped and was sterilely draped. A subcutaneous wheal of 1% Xylocaine plain with a total number 5 mL was used to anesthetize the area properly. A number 11 scalpel was used to make a 0.5 -cm incision across the area of the abscess. The abscess was drained with firm pressure over the abscess yielding approximately a half a tablespoon of pus. Bluntly explored with a forcep and no complex loculations were seen. Sterile dressing applied. Diagnosis Primary Impression: Cellulitis and abscess of left lower extremity Med/Other Pt SpecificInfo: Prescription(s) given Scripts Sulfamethoxazole-Trimethoprim (Bactrim DS) 800-160 Mg Tab 1 TAB PO BID for Infection, #14 TAB 0 Refills Prov: Karan Ramires MD 04/02/17 Disposition: 01 DISCHARGE HOME Condition: Stable Karan Ramires MD Apr 02, 2017 22:23
[2017-04-02] MEDS ORDERED: SULFAMETHOXAZOLE-TRIMETHOPRIM DS 800-160 MG TAB PO ONE (22:45)
[2017-04-02] MEDS ORDERED: IBUPROFEN 600 MG TAB PO ONE (22:45)
[2017-04-02] MEDS ORDERED: BACT800T5 PO (22:51)
== END 2017-04-02 23:36 | disposition home or self-care (01) ==
LOC: NEPD 21:22
DX: L02.416 Cutaneous abscess of left lower limb (principal); J44.9 Chronic obstructive pulmonary disease, unspecified; F17.200 Nicotine dependence, unspecified, uncomplicated
CPT/HCPCS: 67700